=== PATIENT | male | born 1985 | race Caucasian/White ===

== ENCOUNTER 2023-02-15 12:21 | Outpatient (REF) | payer OTHER, SELFPAY ==
[2023-02-15 14:28] LABS: Alanine Aminotransferase 22 U/L (0-40); Albumin Level 4.5 g/dL (3.5-5.0); Alkaline Phosphatase 84 U/L (39-117); Anion Gap 10 (12-20); Aspartate Amino Transferase 26 U/L (5-37); Bilirubin Total 0.7 mg/dL (0.0-1.0); Blood Urea Nitrogen 15 mg/dL (9-16); Carbon Dioxide 29 mmol/L (22-29); Chloride 108 mmol/L (96-108); Cholesterol 153 mg/dL; Estimated Glomerular Filt Rate > 60; Glucose Random 83 mg/dL (60-115); HDL Cholesterol 44 mg/dL; LDL Cholesterol Calculated 99 mg/dl; Potassium 5.5 mmol/L (3.3-5.1); Sodium 141 mmol/L (135-145); Total Protein 7.4 g/dL (6.5-8.0); Triglycerides 50 mg/dL
[2023-02-15 14:41] LABS: TSH reflex Free T4 0.91 uIU/mL (0.32-4.0); Vitamin D 25-OH Total 21.6 ng/mL (>30)
== END 2023-02-15 12:22 | disposition home or self-care (01) ==
LOC: HO.LAB 12:21
PROVIDERS: PCP Nurse Practitioner Family; Visit Provider Nurse Practitioner Family
DX: Z13.21 Encounter for screening for nutritional disorder (principal); Z13.29 Encounter for screening for other suspected endocrine disorder; Z13.220 Encounter for screening for lipoid disorders
CPT/HCPCS: 36415; 80053; 80061; 82306; 84443

== ENCOUNTER 2023-02-19 07:17 | Outpatient (REF) | payer OTHER, SELFPAY ==
[2023-02-19 09:28] LABS: Potassium 4.6 mmol/L (3.3-5.1)
[2023-02-19 10:02] LABS: Vitamin D 25-OH Total 21.8 ng/mL (>30)
== END 2023-02-19 07:18 | disposition home or self-care (01) ==
LOC: HO.LAB 07:17
PROVIDERS: PCP Nurse Practitioner Family; Visit Provider Nurse Practitioner Family
DX: E87.5 Hyperkalemia (principal); E55.9 Vitamin D deficiency, unspecified
CPT/HCPCS: 36415; 82306; 84132

== ENCOUNTER 2023-09-12 07:15 | Outpatient (AMB) | payer OTHER, SELFPAY ==
--- NOTE | 2023-09-12 07:17 | A.OFFPC_ITS ---
Intake Visit Reasons: discuss medication change [phone] Allergies No Known Allergies Allergy (Verified 09/12/23 07:17) Tobacco use date assessed: 03/08/23 Dental Screening Dental Screen Date: 09/12/23 Did you have a dental visit in the last 12 months?: Yes Did you have a dental problem in the last 6 months where you did not have access to dental care?: No Was dental information given to patient?: Patient has dentist HPI HPI Comments History of Present Illness Details 37-year-old male medical history signifi cant for anxiety and depression. Patient presents today for physical exam.? Patient currently following with therapist and having weekly therapy sessions. Patient was started on fluoxetine in january and was doing well on this. Patient reports as a recently started feeling sluggish on the fluoxetine states that he was having a lot of weight gain given following his normal diet and exercise regimen. Patient reports he self tapered off of fluoxetine. Patient requesting to try Wellbutrin 1st depression as recommended by his therapist. RX sent for this. Patient advised to discuss therapist, psychiatrist recommendations. Patient verbalizes understanding and states he will speak with his therapist today regarding recommendations. [facility] Medical History (Updated 02/16/23 @ 08:55 by DEONDRE Pickens) Anxiety Depression Family History Father COPD (chronic obstructive pulmonary disease) Myocardial infarction Mother Substance use disorder Sister Breast CA Brother Depression Other Mental health disorder Social History Housing: Apartment Alcohol intake: current Alcohol intake frequency: holidays/special occasions only Patient Tobacco Use Status: Never used Tobacco Tobacco use type: Cigarette e-Cigarette/Vaping Use: Never Used service: No Current occupational status: employed Cognitive needs: No Hearing needs: No Vision needs: Yes (perscription glasses) Questionnaire PHQ-9 Over the last 2 weeks, how often have you been bothered by any of the following problems? 1. Little interest or pleasure in doing things: several days 2. Feeling down, depressed, or hopeless: several days 3. Trouble falling or staying asleep, or sleeping too much: not at all 4. Feeling tired or having little energy: not at all 5. Poor appetite or overeating: several days 6. Feeling bad about yourself - or that you are a failure or have let yourself or your family down: not at all 7. Trouble concentrating on things, such as reading the newspaper or watching television: not at all 8. Moving or speaking so slowly that other people could have noticed. Or the opposite - being so fidgety or restless that you have been moving around a lot more than usual: not at all 9. Thoughts that you would be better off or of hurting yourself in some way: not at all Total score: 3 Depression Screening Interpretation: Positive Depression Screening Done: Yes 46601 - PHQ-9 Billing: Yes Source: Developed by Drs. Troy Meneses, Ilene Bejarano, Hua Patton and colleagues, with an educational whitley from [employer]. Thrive Questionnaire Date Thrive assessed: 03/08/23 AUDIT C Alcohol Use Questionnaire (AUDIT-C) 1. How often do you have a drink containing alcohol?: Monthly or less Total Score: 1 LEODAN-7 AMB Questionnaire LEODAN-7 Date LEODAN - 7 assessed: 03/08/23 Source: Developed by Drs. Troy Meneses, Ilene Bejarano, Hua Patton and colleagues, with an educational whitley from [employer]. Review of Systems Const Reports weight gain and Reports other (sluggish ) Psych Denies homicidal ideation and Denies suicidal ideation Physical exam (Primary Care) Vital Signs: unable to complete, telehealth exam Tobacco/Smoking Status: Tobacco use Status Tobacco use date assessed 03/08/23 09/12/23 07:18 Patient Tobacco Use Status Never used Tobacco 09/12/23 07:18 Tobacco use type Cigarette 09/12/23 07:18 e-Cigarette/Vaping Use Never Used 09/12/23 07:18 PHQ-9: PHQ-9 Score PHQ-9: Total score 3 09/12/23 07:23 Depression Screening Interpretation: Positive Thrive Assessment: Date of Thrive Assessment Date Thrive assessed 03/08/23 09/12/23 07:18 Telehealth Telehealth Location of provider rendering services: practice address Location of patient: address on file Patient Identification confirmed using: Name, : Yes Telehealth method: voice only (Android) Patient verbally consented to treatment: Yes Patient verbally consented to billing insurance company: Yes Patient informed of any privacy concerns related to visit: Yes Assessment and Plan Assessment & Plan (1) Depression: Code(s): F32.A - Depression, unspecified Plan: Continue to follow with therapist. Will start Wellbutrin 150 mg daily. Patient advised to discuss recommendations for psychiatrist therapist. Patient agreeable to plan of care. (2) Anxiety: Code(s): F41.9 - Anxiety disorder, unspecified Plan: Cotninue to follow with therapist. Plan Follow up in 2 months. Medications: New bupropion HCl (Wellbutrin SR) 150 mg PO DAILY 30 tabs 3RF F32.A - Depression, unspecified, F41.9 - Anxiety disorder, unspecified Coding Level of Care Code Tele Est Pt Level 3 (65176) Diagnoses Depression F32.A Anxiety F41.9
== END 2023-09-12 09:08 | disposition home or self-care (01) ==
LOC: HO.HMGH 07:15
PROVIDERS: PCP Nurse Practitioner Family; Visit Provider Nurse Practitioner Family
DX: F32.A Depression, unspecified (principal); F41.9 Anxiety disorder, unspecified
CPT/HCPCS: 99213

== ENCOUNTER 2024-04-18 09:28 | Outpatient (AMB) | payer OTHER, SELFPAY ==
--- NOTE | 2024-04-18 09:41 | MHC.PC.OV ---
Vital Signs 04/18/24 09:44 Height 5 ft 10 in Weight 171 lb 6 oz BMI 24.6 BP 124/72 Blood Pressure Location Lt brachial Position Sitting Pulse 60 Pulse Source Pulse Oximeter Pulse Oximetry (%) 99 Oxygen Delivery Method Room Air Intake Visit Reasons: Annual Exam- former Michelle patient Intake Note: Patient is here today for a physical and LISS from [facility] Required: No Community Associate: Not Required per policy Accompanied by: Self / Same As Patient Allergies No Known Allergies Allergy (Verified 04/18/24 16:55) Medication List - Last Reconciled 04/18/24 by Herbert Bellamy MD bupropion HCl SR (Wellbutrin SR) 300 mg (2 x 150 mg) PO DAILY valacyclovir 500 mg PO DAILY Tobacco use date assessed: 04/18/24 Dental Screening Dental Screen Date: 04/18/24 Did you have a dental visit in the last 12 months?: Yes Did you have a dental problem in the last 6 months where you did not have access to dental care?: No Was dental information given to patient?: Patient has dentist HPI Annual Exam- former Michelle patient HPI Details 38-year-old male presents to the office requesting a physical. I am assuming his care as his primary care provider has left the practice. In addition to the above, patient is complaining of worsening anxiety, panic attacks and depression. He would like to increase the Wellbutrin dosage. Initially he was on citalopram which was changed to Wellbutrin after he began gaining weight. Patient reports that he has had eating disorder in the past. Patient also has had 3 outbreaks of herpes genitalis in the past few months. Was seen at [facility], requesting suppressive treatment. Patient has sexual activity with men, has not been active in the past few months. He tested negative for HIV in November. Is requesting pre exposure prophylaxis. [facility] Medical History (Updated 04/18/24 @ 17:05 by Herbert Bellamy MD) On pre-exposure prophylaxis for HIV Herpes Anxiety Depression Surgical History No pertinent past surgical history Family History Father COPD (chronic obstructive pulmonary disease) Myocardial infarction Mother Substance use disorder Sister Breast CA Brother Depression Other Mental health disorder Social History Housing: Apartment Alcohol intake: current Alcohol intake frequency: holidays/special occasions only Patient Tobacco Use Status: Never used Tobacco Tobacco use type: Cigarette e-Cigarette/Vaping Use: Never Used Second Hand Smoke Exposure: No service: No Current occupational status: employed Cognitive needs: No Hearing needs: No Vision needs: Yes (perscription glasses) Questionnaire PHQ-9 Over the last 2 weeks, how often have you been bothered by any of the following problems? 1. Little interest or pleasure in doing things: nearly every day 2. Feeling down, depressed, or hopeless: nearly every day (in treatment) 3. Trouble falling or staying asleep, or sleeping too much: more than half the days 4. Feeling tired or having little energy: nearly every day 5. Poor appetite or overeating: not at all 6. Feeling bad about yourself - or that you are a failure or have let yourself or your family down: nearly every day 7. Trouble concentrating on things, such as reading the newspaper or watching television: more than half the days 8. Moving or speaking so slowly that other people could have noticed. Or the opposite - being so fidgety or restless that you have been moving around a lot more than usual: not at all 9. Thoughts that you would be better off or of hurting yourself in some way: not at all Total score: 16 Depression Screening Interpretation: Positive Depression Screening Done: Yes Source: Developed by Drs. Troy Meneses, Ilene Bejarano, Hua Patton and colleagues, with an educational whitley from [employer]. Thrive Questionnaire Date Thrive assessed: 04/18/24 I am a: Patient What is your living situation today?: I have a steady place to live Within the past 12 months, did the food you bought not last and you didn't have the money to get more?: Never true Within the past 12 months, did you worry whether your food would run out before you got money to buy more?: Never true Do you have trouble paying for medicines?: No Do you have trouble getting transportation to medical appointments?: No Do you have trouble paying your heating and electricity bill?: No Do you have trouble taking care of your child, family member or friend?: No Do you have trouble with day-to-day activities such as bathing, preparing meals, shopping, managing finances, etc.?: No Are you currently unemployed and looking for a job?: No Are you interested in more education?: No Currently or been in a relationship where the following occur: No concerns reported THRIVE Score: 0 AUDIT C Alcohol Use Questionnaire (AUDIT-C) 1. How often do you have a drink containing alcohol?: Monthly or less 2. How many drinks containing alcohol do you have on a typical day when you are drinking?: 1 or 2 Total Score: 1 LEODAN-7 AMB Questionnaire LEODAN-7 Date LEODAN - 7 assessed: 04/18/24 Feeling nervous, anxious, or on edge: 3 = Nearly every day (in treatment) Not being able to stop or control worryin = More than half the days Worrying too much about different things: 2 = More than half the days Trouble relaxin = Nearly every day Being so restless that it is hard to sit still: 2 = More than half the days Becoming easily annoyed or irritable: 3 = Nearly every day Feeling afraid as if something awful might happen: 1 = Several days Total LEODAN-7 score (0-4 normal; 5-9 mild; 10-14 moderate; 15-21 severe): 16 Source: Developed by Drs. Troy Meneses, Ilene Bejarano, Hua Patton and colleagues, with an educational whitley from [employer]. Physical exam (Primary Care) Vital Signs: Last Vital Signs Pulse 60 04/18/24 09:44 BP 124/72 04/18/24 09:44 Pulse Ox 99 04/18/24 09:44 Oxygen Delivery Method Room Air 04/18/24 09:44 BMI result Body Mass Index 24.6 Tobacco/Smoking Status: Tobacco use Status Tobacco use date assessed 04/18/24 04/18/24 09:54 Patient Tobacco Use Status Never used Tobacco 04/18/24 09:54 Tobacco use type Cigarette 04/18/24 09:54 e-Cigarette/Vaping Use Never Used 04/18/24 09:54 PHQ-9: PHQ-9 Score PHQ-9: Total score 16 04/18/24 09:54 Depression Screening Interpretation: Positive Thrive Assessment: Date of Thrive Assessment Date Thrive assessed 04/18/24 04/18/24 09:54 Currently or been in a relationship where the following occur: No concerns reported Const General: cooperative and healthy appearing Nutritional Appearance: well nourished Orientation/consciousness: patient oriented x3 Limitations: no limitations HENMT Head: Yes normal to inspection Eyes General: appearance normal, both eyes and all related structures Neck Neck: Yes normal visual inspection Chest Chest palpation & inspection: normal palpation of entire chest wall Resp Effort & Inspection: normal respiratory effort Neuro General: patient oriented x3 Assessment and Plan Assessment & Plan (1) Anxiety: Code(s): F41.9 - Anxiety disorder, unspecified (2) Depression: Code(s): F32.A - Depression, unspecified Plan: Appointment with psychiatrist requested. Wellbutrin dosage has been increased to 300 mg once a day. (3) Herpes: Code(s): B00.9 - Herpesviral infection, unspecified Plan: Long-term suppressive therapy on valacyclovir. (4) On pre-exposure prophylaxis for HIV: Code(s): Z79.899 - Other buttermaker (current) drug therapy Plan: HIV testing has been requested. If the test is negative, we will start pre exposure prophylaxis. (5) Annual physical exam: Code(s): Z00.00 - Encounter for general adult medical examination without abnormal findings Plan: Blood work has been ordered. Will call with results. Orders: Orders Basic Metabolic Panel Today F32.A - Depression, unspecified, F41.9 - Anxiety disorder, unspecified, Z11.3 - Encounter for screening for infections with a predominantly sexual mode of transmission Liver Panel Today F32.A - Depression, unspecified, F41.9 - Anxiety disorder, unspecified, Z11.3 - Encounter for screening for infections with a predominantly sexual mode of transmission Thyroid Stimulating Hormone Today F32.A - Depression, unspecified, F41.9 - Anxiety disorder, unspecified, Z11.3 - Encounter for screening for infections with a predominantly sexual mode of transmission UA and rflx microscopic Today F32.A - Depression, unspecified, F41.9 - Anxiety disorder, unspecified, Z11.3 - Encounter for screening for infections with a predominantly sexual mode of transmission Lipid Panel Today F32.A - Depression, unspecified, F41.9 - Anxiety disorder, unspecified, Z11.3 - Encounter for screening for infections with a predominantly sexual mode of transmission HIV Ab/Ag Today F32.A - Depression, unspecified, F41.9 - Anxiety disorder, unspecified, Z11.3 - Encounter for screening for infections with a predominantly sexual mode of transmission Referrals Psychiatry Outpatient Consultation Service F32.A - Depression, unspecified, F41.9 - Anxiety disorder, unspecified Medications: New valacyclovir 500 mg PO DAILY 30 tabs 1RF Changed From bupropion HCl SR (Wellbutrin SR) 150 mg PO DAILY 30 tabs 3RF F32.A - Depression, unspecified, F41.9 - Anxiety disorder, unspecified To bupropion HCl SR (Wellbutrin SR) 300 mg (2 x 150 mg) PO DAILY 180 tabs 1RF F32.A - Depression, unspecified, F41.9 - Anxiety disorder, unspecified Coding Level of Care Code Est Pt Level 4 (38299) Est Pt Prev Care 18-39y(03621) Diagnoses Anxiety F41.9 Depression F32.A Herpes B00.9 On pre-exposure prophylaxis for HIV Z79.899 Annual physical exam Z00.00
[2024-04-18 09:44] VITALS: BP 124/72; PULSE 60; O2SAT 99; BMI 24.6
== END 2024-04-18 10:32 | disposition home or self-care (01) ==
PROVIDERS: PCP Internal Medicine; Visit Provider Internal Medicine
DX: Z00.00 Encounter for general adult medical examination without abnormal findings (principal); F41.9 Anxiety disorder, unspecified; F32.A Depression, unspecified; B00.9 Herpesviral infection, unspecified; Z79.899 Other long term (current) drug therapy
CPT/HCPCS: 99214; 99395

== ENCOUNTER 2024-04-28 08:35 | Outpatient (REF) | payer OTHER, SELFPAY ==
[2024-04-28 09:43] LABS: Appearance Urine Cloudy; Color Urine Yellow; Glucose Urine UA Negative (Negative); Leukocyte Esterase Urine Trace (Negative); Nitrite Urine Negative (Negative); PH 7.5 (5.0-9.0); UMIC TRIGGER UA YES; Urine Blood Negative (Negative); Urine Ketones Negative (Negative); Urine Protein Negative (Neg-Trace)
[2024-04-28 09:49] LABS: Bacteria Urine None Seen (None Seen); Hyaline Casts Urine 0-2 /LPF (0-2); RBC Urine 0-2 /HPF (0-2); Squamous Epithelial Cell Urine 0-2 /HPF (0-2); WBC Urine 0-5 /HPF (0-5)
[2024-04-28 10:13] LABS: Alanine Aminotransferase 14 U/L (0-40); Albumin Level 4.2 g/dL (3.5-5.0); Alkaline Phosphatase 67 U/L (39-117); Anion Gap 11 (12-20); Aspartate Amino Transferase 15 U/L (5-37); Bilirubin Direct 0.2 mg/dL (0.0-0.5); Bilirubin Total 0.6 mg/dL (0.0-1.0); Blood Urea Nitrogen 15 mg/dL (9-16); Calcium 9.6 mg/dL (8.4-10.2); Carbon Dioxide 26 mmol/L (22-29); Chloride 110 mmol/L (96-108); Cholesterol 130 mg/dL (<200); Estimated Glomerular Filt Rate > 60; Glucose Random 90 mg/dL (60-115); HDL Cholesterol 37 mg/dL (>40); LDL Cholesterol Calculated 85 mg/dL (<100); Potassium 4.7 mmol/L (3.3-5.1); Sodium 142 mmol/L (135-145); Total Protein 6.7 g/dL (6.5-8.0); Triglycerides 42 mg/dL (<150)
[2024-04-28 10:25] LABS: HIV AB/AG Nonreactive (Nonreactive); HIV Num 1 0.06 S/CO (0.00-0.99)
[2024-04-28 10:29] LABS: Thyroid Stimulating Hormone 0.45 uIU/mL (0.32-4.0)
== END 2024-04-28 08:36 | disposition home or self-care (01) ==
LOC: HO.LAB 08:35
PROVIDERS: PCP Internal Medicine; Visit Provider Internal Medicine
DX: F41.9 Anxiety disorder, unspecified (principal); F32.A Depression, unspecified; Z11.3 Encounter for screening for infections with a predominantly sexual mode of transmission
CPT/HCPCS: 36415; 80048; 80061; 80076; 81001; 84443; 87389

== ENCOUNTER 2024-05-07 08:54 | Outpatient (AMB) | payer OTHER, SELFPAY ==
--- NOTE | 2024-05-07 09:07 | A.OFFPSYCH_ITS ---
Intake Vital Signs 05/07/24 09:47 Height 5 ft 10 in Weight 168 lb Intake Visit Reasons: consultation [facility] [employer] Required: No Allergies No Known Allergies Allergy (Verified 04/18/24 16:55) Medication List - Last Reconciled 05/07/24 by Mindy Vogt APRN bupropion HCl SR (Wellbutrin SR) 300 mg (2 x 150 mg) PO DAILY emtricitabine-tenofovir (TDF) 200-300 mg (Truvada) 1 tab PO DAILY valacyclovir 500 mg PO DAILY HPI- Psychiatric Chief Complaint: consultation HPI Narrative: Referred by PCP for evaluation of depression and anxiety; Pt PHQ9 = 21 and LEODAN 7 = 18. pt reports significant depression fro years but worse over last 2-3 years. Pt feels sad every day; cries every day; bursts into tears even when working out at the gym. He is always anxious; He wakes in the middle of the night; he says his brain just gets going and won't stop. describes thoughts being of regrets, whys, critical thoughts about himself. He reports low energy, low motivation, lack of enjoyment; he reports a history of eating disorder in response to being bullied by peers and family members for being a big child. He began using laxatives and restricting food in his 20s. He still occasionalkly does resurt to that but more often he works out 1-2 times a day in order to feel okay about eating. He reports not enjoying eating but does eat protein and fruits and vegetable because he knows his body needs it. He reports feww friends, not cclose to family and a very difficult break up with s.o in December 2023. Pt denies SI or HI; no A/V Hallucination; no hx of edita Pt is currently taking wellbutrin 300mg daily and feels it has helped him not be as sad; no reported side effects. Pt has tried celexa and prozac both of which caused weight gain up to 40# He does not want to take anything that could cause weight gain as he feels it could trigger eating disorder. Past Psychiatric History: no IPLOC, No IOP or PHP. He has outpatient therpaist in [place] Otoniel Stewart Subjective Subjective Subjective Medication Compliance: Yes Side effects from medications: No Review of Systems Medical Review of Systems: unchanged Mental Status Exam Mental Status Exam Patient Appearance: Well Grooomed and Appropriate Patient Orientation: Person, Place, Time and Situation Level of Consciousness: Awake Patient Behavior: Appropriate Mood Description: Blunted, Sad and Nervous Affect Description: Depressed, Anxious, Flat and Sad Patient Cognition Impaired: No Ability to Follow Directions: Good Speech Pattern: Clear Memory Description: Intact Hallucinations: None Delusions: Not Present Thought Process: Intact and Goal Oriented Thought Content: positive for Intact and positive for Goal Oriented Judgement: Fair Assessment and Plan Assessment & Plan (1) Major depressive disorder, recurrent, moderate: Status: Acute Code(s): F33.1 - Major depressive disorder, recurrent, moderate (2) LEODAN (generalized anxiety disorder): Status: Acute Code(s): F41.1 - Generalized anxiety disorder Plan continue wellbutrin 300mg daily and discussed increase in future to 450mg if needed once anxiety reduced start lamictal 25mg daily x 14 days then 50mg daily x 14 days then 75mg daily x 10 days then 100mg daily return in one month continue therapy Medications: New lamotrigine (Lamictal) 25 mg orally take 1 tab daily x 14 days then take 2 tabs daily x 14 days then take 3 tabs daily x 10days 75 tabs 0RF 38 days Counseling and coordination of Care Pt. Self Management counseling: Maintenance-social rhythm, Mod caffeine/ETOH intake, Nutrition education and improvement, Sleep hygiene, Behavior activation and General coping skills Medication management counseling: Effectiveness, Side effects, Dosing range, Duration, Drug interaction and Adherence Details-Med Mgmt counseling: if develop rash stop lamictal and call office right away Diagnosis and Prognosis Counseling: Accuracy of diagnosis, Prognosis over time, Impact of diagnosis on life functions and Adequacy of current interventions Details: I spent 60 minutes reviewing the record, seeing the patient and documenting in the medical record. Counseling provided to the patient/caregiver as outlined below. Addressed pa tient/caregiver concerns regarding current medication regime including effective adherence. Addressed patient/caregiver concerns regarding diagnosis and prognosis including accuracy of diagnosis, prognosis over time, impact of diagnosis. Addressed patient/caregiver concerns regarding impact of recent stressors. [facility] Medical History (Updated 05/07/24 @ 10:29 by Mindy Vogt APRN) On pre-exposure prophylaxis for HIV Herpes Anxiety Depression Surgical History No pertinent past surgical history Family History Father COPD (chronic obstructive pulmonary disease) Myocardial infarction Mother Substance use disorder Sister Breast CA Brother Depression Other Mental health disorder Social History Housing: Apartment Alcohol intake: current Alcohol intake frequency: holidays/special occasions only Patient Tobacco Use Status: Never used Tobacco Tobacco use type: Cigarette e-Cigarette/Vaping Use: Never Used Second Hand Smoke Exposure: No service: No Current occupational status: employed Cognitive needs: No Hearing needs: No Vision needs: Yes (perscription glasses) Social History: lives alone; has dog and 2 cats; works in [employer] Reviewed Substance History: none Trauma History: bullied Coding Level of Care Code Psych Diag Eval w/Med (88898) Diagnoses Major depressive disorder, recurrent, moderate F33.1 LEODAN (generalized anxiety disorder) F41.1
== END 2024-05-07 10:07 | disposition home or self-care (01) ==
PROVIDERS: PCP Internal Medicine; Visit Provider Clinical Nurse Specialist Psychiatric/Mental Health
DX: F33.1 Major depressive disorder, recurrent, moderate (principal); F41.1 Generalized anxiety disorder
CPT/HCPCS: 90792

== ENCOUNTER → 2024-05-07 08:54 | Outpatient (BNVA) | payer OTHER, SELFPAY | PROVIDERS: PCP Internal Medicine; Visit Provider Clinical Nurse Specialist Psychiatric/Mental Health | DX: F33.1 Major depressive disorder, recurrent, moderate (principal); F41.1 Generalized anxiety disorder | CPT/HCPCS: 90792 ==

== ENCOUNTER 2024-06-05 09:24 | Outpatient (AMB) | payer OTHER, SELFPAY ==
--- NOTE | 2024-06-05 09:29 | MHC.OFFVISPS ---
Intake Intake Visit Reasons: consultation [employer] Required: No Allergies No Known Allergies Allergy (Verified 04/18/24 16:55) Medication List - Last Reconciled 06/05/24 by Mindy Vogt APRN bupropion HCl SR (Wellbutrin SR) 300 mg (2 x 150 mg) PO DAILY emtricitabine-tenofovir (TDF) 200-300 mg (Truvada) 1 tab PO DAILY lamotrigine (Lamictal) 25 mg orally take 1 tab daily x 14 days then take 2 tabs daily x 14 days then take 3 tabs daily x 10days 38 days valacyclovir 500 mg PO DAILY HPI- Psychiatric Chief Complaint: consultation HPI Narrative: Pt is currently taking wellbutrin 300mg daily and and lamictal 75mg daily; He denies rash; no reported side effects. Pt reports slightly improved mood but still struggling with depression and anxiety. His PHQ9 = 16 and GAD7 = 12. Pt has had some stress and overstimulation with traveling and spending time with family; he is not bursting into tears everyday. He did have a long cry Tuesday but it felt cathartic. No SI No HI. He continues to have negative thoughts about self often. still not sleeping well; wakes several times a night- tried melatonin and no help Past Psychiatric History: Referred by PCP for evaluation of depression and anxiety; At intake, Pt PHQ9 = 21 and LEODAN 7 = 18. pt reported significant depression for years but worse over last 2-3 years. Pt feels sad every day; cries every day; bursts into tears even when working out at the gym. He is always anxious; He wakes in the middle of the night; he says his brain just gets going and won't stop. describes thoughts being of regrets, whys, critical thoughts about himself. He reports low energy, low motivation, lack of enjoyment; he reports a history of eating disorder in response to being bullied by peers and family members for being a big child. He began using laxatives and restricting food in his 20s. He still occasionally does resorts to that but more often he works out 1-2 times a day in order to feel okay about eating. He reports not enjoying eating but does eat protein and fruits and vegetable because he knows his body needs it. He reports few friends, not close to family and a very difficult break up with S.O in December 2023. Pt denies SI or HI; no A/V Hallucination; no hx of edita Pt has tried celexa and prozac both of which caused weight gain up to 40# He does not want to take anything that could cause weight gain as he feels it could trigger eating disorder. Past Psychiatric History: no IPLOC, No IOP or PHP. He has [facility] [place] [facility] Subjective Subjective Subjective Medication Compliance: Yes Side effects from medications: No Review of Systems Medical Review of Systems: unchanged Mental Status Exam Mental Status Exam Patient Appearance: Appropriate Patient Orientation: Person, Place, Time and Situation Level of Consciousness: Awake and Alert Patient Behavior: Appropriate and Cooperative Mood Description: Anxious Affect Description: Anxious Patient Cognition Impaired: No Ability to Follow Directions: Good Speech Pattern: Clear Hallucinations: None Thought Process: Intact Thought Content: positive for Intact Judgement: Fair Assessment and Plan Assessment & Plan (1) LEODAN (generalized anxiety disorder): Status: Acute Code(s): F41.1 - Generalized anxiety disorder (2) Major depressive disorder, recurrent, moderate: Status: Acute Code(s): F33.1 - Major depressive disorder, recurrent, moderate Plan increase lamictal to 100mg qam increase wellbutrin to [id number] and [id number] mg daily start hydroxyzine 25 mg at bedtime and may repeat times 1 if still awake in one hour Medications: New bupropion HCl XL (Wellbutrin XL) 150 mg PO QAM 30 tabs 0RF lamotrigine (Lamictal) 100 mg PO DAILY 30 tabs 0RF bupropion HCl XL (Wellbutrin XL) 300 mg PO QAM 30 tabs 0RF hydroxyzine HCl 25 mg orally Take one at bedtime and may repeat in one hour if still awake; 60 tabs 0RF Discontinued bupropion HCl SR (Wellbutrin SR) Discontinued Reason: Doctor's Order 300 mg (2 x 150 mg) PO DAILY 180 tabs 1RF F32.A - Depression, unspecified, F41.9 - Anxiety disorder, unspecified lamotrigine (Lamictal) Discontinued Reason: Doctor's Order 25 mg orally take 1 tab daily x 14 days then take 2 tabs daily x 14 days then take 3 tabs daily x 10days 38 days 75 tabs 0RF Counseling and coordination of Care Pt. Self Management counseling: Sleep hygiene, Behavior activation, General coping skills, Parenting skills and Problem solving Medication management counseling: Effectiveness, Side effects, Dosing range, Duration, Drug interaction and Adherence Diagnosis and Prognosis Counseling: Accuracy of diagnosis, Prognosis over time, Impact of diagnosis on life functions, Impact of family relationship, Problematic behaviors secondary to diagnosis and Adequacy of current interventions Details: I spent 30 minutes reviewing the record, seeing the patient and documenting in the medical record. Counseling provided to the patient/caregiver as outlined below. Addressed patient/caregiver concerns regarding current medication regime including effective adherence. Addressed patient/caregiver concerns regarding diagnosis and prognosis including accuracy of diagnosis, prognosis over time, impact of diagnosis. Addressed patient/caregiver concerns regarding impact of recent stressors. [facility] Medical History (Updated 05/07/24 @ 10:29 by Mindy Vogt APRN) On pre-exposure prophylaxis for HIV Herpes Anxiety Depression Surgical History No pertinent past surgical history Family History Father COPD (chronic obstructive pulmonary disease) Myocardial infarction Mother Substance use disorder Sister Breast CA Brother Depression Other Mental health disorder Social History Housing: Apartment Alcohol intake: current Alcohol intake frequency: holidays/special occasions only Patient Tobacco Use Status: Never used Tobacco Tobacco use type: Cigarette e-Cigarette/Vaping Use: Never Used Second Hand Smoke Exposure: No service: No Current occupational status: employed Cognitive needs: No Hearing needs: No Vision needs: Yes (perscription glasses) Social History: lives alone; has dog and 2 cats; works in [employer] Substance History: none Trauma History: bullied Coding Level of Care Code Est Pt Level 4 (77504) Diagnoses LEODAN (generalized anxiety disorder) F41.1 Major depressive disorder, recurrent, moderate F33.1
== END 2024-06-05 09:57 | disposition home or self-care (01) ==
LOC: HO.HOP 09:24
PROVIDERS: PCP Internal Medicine; Visit Provider Clinical Nurse Specialist Psychiatric/Mental Health
DX: F41.1 Generalized anxiety disorder (principal); F33.1 Major depressive disorder, recurrent, moderate
CPT/HCPCS: 99214

== ENCOUNTER → 2024-06-05 09:24 | Outpatient (BNVA) | payer OTHER, SELFPAY | PROVIDERS: PCP Internal Medicine; Visit Provider Clinical Nurse Specialist Psychiatric/Mental Health | DX: F41.1 Generalized anxiety disorder (principal); F33.1 Major depressive disorder, recurrent, moderate; Z71.89 Other specified counseling | CPT/HCPCS: 99212 ==

== ENCOUNTER 2024-06-25 09:39 | Outpatient (AMB) | payer OTHER, SELFPAY ==
--- NOTE | 2024-06-25 09:44 | A.OFFPSYCH_ITS ---
Intake Intake Visit Reasons: consultation [employer] Required: No Allergies No Known Allergies Allergy (Verified 04/18/24 16:55) Medication List - Last Reconciled 06/25/24 by Mindy Vogt APRN bupropion HCl XL (Wellbutrin XL) 150 mg PO QAM bupropion HCl XL (Wellbutrin XL) 300 mg PO QAM emtricitabine-tenofovir (TDF) 200-300 mg (Truvada) 1 tab PO DAILY lamotrigine (Lamictal) 150 mg (1.5 x 100 mg) PO DAILY mirtazapine 7.5 mg PO BEDTIME valacyclovir 500 mg PO DAILY HPI- Psychiatric Chief Complaint: consultation HPI Narrative: pt symptoms worsened; PHQ9=23 and GAD7 = 19. he reports feeling much more depressed; isolative, sad, and anxious; trigger is seeing his ex with a new partner. He has not slept well even with the hydroxyzine. he denies SI or Hi. discussed possibility of PHP. He is seeing his therapist weekly. he does not think increase in wellbutrin has worsened his mood or anxiety. Past Psychiatric History: Referred by PCP for evaluation of depression and anxiety; At intake, Pt PHQ9 = 21 and LEODAN 7 = 18. pt reported significant depression for years but worse over last 2-3 years. Pt feels sad every day; crie s every day; bursts into tears even when working out at the gym. He is always anxious; He wakes in the middle of the night; he says his brain just gets going and won't stop. describes thoughts being of regrets, whys, critical thoughts about himself. He reports low energy, low motivation, lack of enjoyment; he reports a history of eating disorder in response to being bullied by peers and family members for being a big child. He began using laxatives and restricting food in his 20s. He still occasionally does resorts to that but more often he works out 1-2 times a day in order to feel okay about eating. He reports not enjoying eating but does eat protein and fruits and vegetable because he knows his body needs it. He reports few friends, not close to family and a very difficult break up with S.O in December 2023. Pt denies SI or HI; no A/V Hallucination; no hx of edita Pt has tried celexa and prozac both of which caused weight gain up to 40# He does not want to take anything that could cause weight gain as he feels it could trigger eating disorder. Past Psychiatric History: no IPLOC, No IOP or PHP. He has [facility] [place] [facility] Subjective Subjective Subjective Medication Compliance: Yes Side effects from medications: No Review of Systems Medical Review of Systems: unchanged Mental Status Exam Mental Status Exam Patient Appearance: Well Grooomed and Appropriate Patient Orientation: Person, Place, Time and Situation Level of Consciousness: Awake and Alert Patient Behavior: Appropriate Mood Description: Flat and Sad Affect Description: Flat and Sad Patient Cognition Impaired: No Ability to Follow Directions: Good Speech Pattern: Clear and Coherent Memory Description: Intact Hallucinations: None Delusions: Not Present Thought Process: Intact and Goal Oriented Thought Content: positive for Intact and positive for Goal Oriented Judgement: Good Assessment and Plan Assessment & Plan (1) LEODAN (generalized anxiety disorder): Status: Acute Code(s): F41.1 - Generalized anxiety disorder (2) Major depressive disorder, recurrent, moderate: Status: Acute Code(s): F33.1 - Major depressive disorder, recurrent, moderate Plan Increase lamictal to 150mg daily add remron 7.5mg at bedtime stop hydroxyzine continue wellbutrin 450mg qam Medications: New mirtazapine 7.5 mg PO BEDTIME 30 tabs 1RF Changed From lamotrigine (Lamictal) 100 mg PO DAILY 30 tabs 0RF To lamotrigine (Lamictal) 150 mg (1.5 x 100 mg) PO DAILY 45 tabs 1RF Refilled bupropion HCl XL (Wellbutrin XL) 150 mg PO QAM 30 tabs 0RF bupropion HCl XL (Wellbutrin XL) 300 mg PO QAM 30 tabs 0RF Discontinued hydroxyzine HCl Discontinued Reason: Doctor's Order 25 mg orally Take one at bedtime and may repeat in one hour if still awake; 60 tabs 0RF Counseling and coordination of Care Pt. Self Management counseling: Maintenance-social rhythm, Mod caffeine/ETOH intake, Sleep hygiene, Behavior activation, General coping skills and Problem solving Medication management counseling: Effectiveness, Side effects, Dosing range, Duration, Drug interaction and Adherence Diagnosis and Prognosis Counseling: Accuracy of diagnosis, Prognosis over time, Impact of diagnosis on life functions, Impact of family relationship and Adequacy of current interventions Details: I spent 40 minutes reviewing the record, seeing the patient and documenting in the medical record. Counseling provided to the patient/caregiver as outlined below. Addressed shanita ent/caregiver concerns regarding current medication regime including effective adherence. Addressed patient/caregiver concerns regarding diagnosis and prognosis including accuracy of diagnosis, prognosis over time, impact of diagnosis. Addressed patient/caregiver concerns regarding impact of recent stressors. [facility] Medical History (Updated 05/07/24 @ 10:29 by Mindy Vogt APRN) On pre-exposure prophylaxis for HIV Herpes Anxiety Depression Surgical History No pertinent past surgical history Family History Father COPD (chronic obstructive pulmonary disease) Myocardial infarction Mother Substance use disorder Sister Breast CA Brother Depression Other Mental health disorder Social History Housing: Apartment Alcohol intake: current Alcohol intake frequency: holidays/special occasions only Patient Tobacco Use Status: Never used Tobacco Tobacco use type: Cigarette e-Cigarette/Vaping Use: Never Used Second Hand Smoke Exposure: No service: No Current occupational status: employed Cognitive needs: No Hearing needs: No Vision needs: Yes (perscription glasses) Social History: lives alone; has dog and 2 cats; works in [employer] Substance History: none Trauma History: bullied Coding Level of Care Code Est Pt Level 4 (87399) Diagnoses LEODAN (generalized anxiety disorder) F41.1 Major depressive disorder, recurrent, moderate F33.1
== END 2024-06-25 09:58 | disposition home or self-care (01) ==
LOC: HO.HOP 09:39
PROVIDERS: PCP Internal Medicine; Visit Provider Clinical Nurse Specialist Psychiatric/Mental Health
DX: F41.1 Generalized anxiety disorder (principal); F33.1 Major depressive disorder, recurrent, moderate
CPT/HCPCS: 99214

== ENCOUNTER → 2024-06-25 09:39 | Outpatient (BNVA) | payer OTHER, SELFPAY | PROVIDERS: PCP Internal Medicine; Visit Provider Clinical Nurse Specialist Psychiatric/Mental Health | DX: F33.1 Major depressive disorder, recurrent, moderate (principal); F41.1 Generalized anxiety disorder | CPT/HCPCS: 99212 ==

== ENCOUNTER 2024-07-17 09:01 | Outpatient (AMB) | payer OTHER, SELFPAY ==
--- NOTE | 2024-07-17 09:15 | MHC.OFFVISPS ---
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 He started taking lamictal 200mg in am daily 2 days ago because it got too difficult to cut pills in half; no side effects; hefeels it may be helping with feeling calmer; slight improvement in PHQ9= 21 (was 23 last visit) and GAD7 15 (was 19 last visit) No SI nO Hi. many stressors per pt with finances, rent increase, work is slow. Past Psychiatric History: Referred by PCP for evaluation of depression and anxiety; At intake, Pt PHQ9 = 21 and LEODAN 7 = 18. pt reported significant depression for years but worse over last 2-3 years. Pt feels sad every day; cries every day; bursts into tears even when working out at the gym. He is always anxious; He wakes in the middle of the night; he says his brain just gets going and won't stop. describes thoughts being of regrets, whys, critical thoughts about himself. He reports low energy, low motivation, lack of enjoyment; he reports a history of eating disorder in response to being bullied by peers and family members for being a big child. He began using laxatives and restricting food in his 20s. He still occasionally does resorts to that but more often he works out 1-2 times a day in order to feel okay about eating. He reports not enjoying eating but does eat protein and fruits and vegetable because he knows his body needs it. He reports few friends, not close to family and a very difficult break up with S.O in December 2023. Pt denies SI or HI; no A/V Hallucination; no hx of edita Pt has tried celexa and prozac both of which caused weight gain up to 40# He does not want to take anything that could cause weight gain as he feels it could trigger eating disorder. Past Psychiatric History: no IPLOC, No IOP or PHP. He has outpatient therpaist in [facility] Subjective Subjective Subjective Medication Compliance: Yes Side effects from medications: No Review of Systems Medical Review of Systems: unchanged Mental Status Exam Mental Status Exam Patient Appearance: Appropriate Patient Orientation: Person, Place, Time and Situation Level of Consciousness: Awake Patient Behavior: Appropriate and Cooperative Mood Description: Sad Affect Description: Flat and Sad Patient Cognition Impaired: No Ability to Follow Directions: Good Speech Pattern: Clear Memory Description: Intact Hallucinations: None Delusions: Not Present Thought Process: Intact and Slowed Thinking Thought Content: positive for Intact Judgement: Fair Assessment and Plan Assessment & Plan (1) LEODAN (generalized anxiety disorder): Status: Acute Code(s): F41.1 - Generalized anxiety disorder (2) Major depressive disorder, recurrent, moderate: Status: Acute Code(s): F33.1 - Major depressive disorder, recurrent, moderate Plan continue lamictal 200mg qAM increase remeron to 15 mg at bedtime start vitamin B50 complex daily continue wellbutrin 450mg qam Medications: New mirtazapine (Remeron) 15 mg PO BEDTIME 30 tabs 2RF Changed From lamotrigine (Lamictal) 150 mg (1.5 x 100 mg) PO DAILY 45 tabs 1RF To lamotrigine (Lamictal) 200 mg (2 x 100 mg) PO DAILY 60 tabs 2RF Discontinued mirtazapine Discontinued Reason: Doctor's Order 7.5 mg PO BEDTIME 30 tabs 1RF Counseling and coordination of Care Pt. Self Management counseling: Maintenance-social rhythm, Mod caffeine/ETOH intake, Sleep hygiene, Behavior activation and General coping skills Medication management counseling: Effectiveness, Side effects, Dosing range, Duration, Drug interaction and Adherence Diagnosis and Prognosis Counseling: Accuracy of diagnosis, Prognosis over time, Impact of diagnosis on life functions, Impact of family relationship, Problematic behaviors secondary to diagnosis and Adequacy of current interventions Details: I spent 30 minutes reviewing the record, seeing the patient and documenting in the medical record. Counseling provided to the patient/caregiver as outlined below. Addressed patient/caregiver concerns regarding current medication regime including effective adherence. Addressed patient/caregiver concerns regarding diagnosis and prognosis including accuracy of diagnosis, prognosis over time, impact of diagnosis. Addressed patient/caregiver concerns regarding impact of recent stressors. [facility] Medical History (Updated 05/07/24 @ 10:29 by Mindy Vogt APRN) On pre-exposure prophylaxis for HIV Herpes Anxiety Depression Surgical History No pertinent past surgical history Family History Father COPD (chronic obstructive pulmonary disease) Myocardial infarction Mother Substance use disorder Sister Breast CA Brother Depression Other Mental health disorder Social History Housing: Apartment Alcohol intake: current Alcohol intake frequency: holidays/special occasions only Patient Tobacco Use Status: Never used Tobacco Tobacco use type: Cigarette e-Cigarette/Vaping Use: Never Used Second Hand Smoke Exposure: No service: No Current occupational status: employed Cognitive needs: No Hearing needs: No Vision needs: Yes (perscription glasses) Social History: lives alone; has dog and 2 cats; works in [employer] Substance History: none Trauma History: bullied Coding Level of Care Code Est Pt Level 4 (92978) Diagnoses LEODAN (generalized anxiety disorder) F41.1 Major depressive disorder, recurrent, moderate F33.1
== END 2024-07-17 09:36 | disposition home or self-care (01) ==
LOC: HO.HOP 09:01
PROVIDERS: PCP Internal Medicine; Visit Provider Clinical Nurse Specialist Psychiatric/Mental Health
DX: F41.1 Generalized anxiety disorder (principal); F33.1 Major depressive disorder, recurrent, moderate
CPT/HCPCS: 99214

== ENCOUNTER → 2024-07-17 09:01 | Outpatient (BNVA) | payer OTHER, SELFPAY | PROVIDERS: PCP Internal Medicine; Visit Provider Clinical Nurse Specialist Psychiatric/Mental Health | DX: F41.1 Generalized anxiety disorder (principal); F33.1 Major depressive disorder, recurrent, moderate | CPT/HCPCS: 99212 ==

== ENCOUNTER 2024-07-30 09:09 | Outpatient (AMB) | payer OTHER, SELFPAY ==
--- NOTE | 2024-07-30 09:12 | A.OFFPSYCH_ITS ---
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 pt worries every day. the anxiety has not increased since the wellbutrin but has not helped he anxiety either; depression slightly improved. No SI or HI. Past Psychiatric History: Referred by PCP for evaluation of depression and anxiety; At intake, Pt PHQ9 = 21 and LEODAN 7 = 18. pt reported significant depression for years but worse over last 2-3 years. Pt feels sad every day; cries every day; bursts into tears even when working out at the gym. He is always anxious; He wakes in the middle of the night; he says his brain just gets going and won't stop. describes thoughts being of regrets, whys, critical thoughts about himself. He reports low energy, low motivation, lack of enjoyment; he reports a history of eating disorder in response to being bullied by peers and family members for being a big child. He began using laxatives and restricting food in his 20s. He still occasionally does resorts to that but more often he works out 1-2 times a day in order to feel okay about eating. He reports not enjoying eating but does eat protein and fruits and vegetable because he knows his body needs it. He reports few friends, not close to family and a very difficult break up with S.O in December 2023. Pt denies SI or HI; no A/V Hallucination; no hx of edita Pt has tried celexa and prozac both of which caused weight gain up to 40# He does not want to take anything that could cause weight gain as he feels it could trigger eating disorder. Past Psychiatric History: no IPLOC, No IOP or PHP. He has outpatient therpaist in [place] [facility] Subjective Subjective Subjective Medication Compliance: Yes Side effects from medications: No Review of Systems Medical Review of Systems: unchanged Mental Status Exam Mental Status Exam Patient Appearance: Appropriate Patient Orientation: Person, Place, Time and Situation Level of Consciousness: Awake Patient Behavior: Appropriate Mood Description: Anxious and Sad Affect Description: Sad Patient Cognition Impaired: No Ability to Follow Directions: Good Speech Pattern: Clear and Soft-Spoken Memory Description: Intact Hallucinations: None Delusions: Not Present Thought Process: Intact Thought Content: positive for Intact Judgement: Good Assessment and Plan Assessment & Plan (1) LEODAN (generalized anxiety disorder): Status: Acute Code(s): F41.1 - Generalized anxiety disorder (2) Major depressive disorder, recurrent, moderate: Status: Acute Code(s): F33.1 - Major depressive disorder, recurrent, moderate Plan add lamictal 50mg at 3 pm daily for reduced anxiety discussed SSRI but pt fearful of weight gain with ssri Medications: New lamotrigine (Lamictal) 50 mg (2 x 25 mg) PO DAILY@1500 180 tabs 0RF 90 days Refilled bupropion HCl XL (Wellbutrin XL) 150 mg PO QAM 30 tabs 2RF bupropion HCl XL (Wellbutrin XL) 300 mg PO QAM 30 tabs 2RF lamotrigine (Lamictal) 200 mg (2 x 100 mg) PO DAILY 180 tabs 1RF Counseling and coordination of Care Pt. Self Management counseling: Maintenance-social rhythm, Sleep hygiene, Behavior activation, Cognitive restructuring, General coping skills and Problem solving Medication management counseling: Effectiveness, Side effects, Dosing range, Duration, Drug interaction and Adherence Diagnosis and Prognosis Counseling: Accuracy of diagnosis, Prognosis over time, Impact of diagnosis on life functions, Impact of family relationship, Problematic behaviors secondary to diagnosis and Adequacy of current interventions Details: I spent 40 minutes reviewing the record, seeing the patient and documenting in the medical record. Counseling provided to the patient/caregiver as outlined below. Addressed patient/caregiver concerns regarding current medication regime including effective adherence. Addressed patient/caregiver concerns regarding diagnosis and prognosis including accuracy of diagnosis, prognosis over time, impact of diagnosis. Addressed patient/caregiver concerns regarding impact of recent stressors. [facility] Medical History (Updated 05/07/24 @ 10:29 by Mindy Vogt APRN) On pre-exposure prophylaxis for HIV Herpes Anxiety Depression Surgical History No pertinent past surgical history Family History Father COPD (chronic obstructive pulmonary disease) Myocardial infarction Mother Substance use disorder Sister Breast CA Brother Depression Other Mental health disorder Social History Housing: Apartment Alcohol intake: current Alcohol intake frequency: holidays/special occasions only Patient Tobacco Use Status: Never used Tobacco Tobacco use type: Cigarette e-Cigarette/Vaping Use: Never Used Second Hand Smoke Exposure: No service: No Current occupational status: employed Cognitive needs: No Hearing needs: No Vision needs: Yes (perscription glasses) Social History: lives alone; has dog and 2 cats; works in [employer] Substance History: none Trauma History: bullied Coding Level of Care Code Est Pt Level 4 (30764) Diagnoses LEODAN (generalized anxiety disorder) F41.1 Major depressive disorder, recurrent, moderate F33.1
== END 2024-07-30 11:12 | disposition home or self-care (01) ==
LOC: HO.HOP 09:09
PROVIDERS: PCP Internal Medicine; Visit Provider Clinical Nurse Specialist Psychiatric/Mental Health
DX: F41.1 Generalized anxiety disorder (principal); F33.1 Major depressive disorder, recurrent, moderate
CPT/HCPCS: 99214

== ENCOUNTER → 2024-07-30 09:09 | Outpatient (BNVA) | payer OTHER, SELFPAY | PROVIDERS: PCP Internal Medicine; Visit Provider Clinical Nurse Specialist Psychiatric/Mental Health | DX: F41.1 Generalized anxiety disorder (principal); F33.1 Major depressive disorder, recurrent, moderate | CPT/HCPCS: 99212 ==

== ENCOUNTER 2024-08-27 09:30 | Outpatient (AMB) | payer OTHER, SELFPAY ==
--- NOTE | 2024-08-27 09:33 | A.OFFPSYCH_ITS ---
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 Allergies No Known Allergies Allergy (Verified 04/18/24 16:55) Medication List - Last Reconciled 08/27/24 by Mindy Vogt APRN bupropion HCl XL (Wellbutrin XL) 150 mg PO QAM bupropion HCl XL (Wellbutrin XL) 300 mg PO QAM emtricitabine-tenofovir (TDF) 200-300 mg (Truvada) 1 tab PO DAILY lamotrigine (Lamictal) 50 mg (2 x 25 mg) PO DAILY@1500 90 days lamotrigine (Lamictal) 200 mg (2 x 100 mg) PO DAILY mirtazapine (Remeron) 15 mg PO BEDTIME valacyclovir 500 mg PO DAILY HPI- Psychiatric Chief Complaint: f/u consultation HPI Narrative: pt reports improved anxiety and depression; feels that although he has symptoms he can manage better; when he is busy he feels pretty well; when he is not distracted that is when he has more trouble with intrusive negative thinking; pt stopped the remeron due to feeling it constipated him. he is also strugging with eating disorder symptoms- eating and then feeling bad about it; not wanting to gain weight and using laxative daily. we discussed [place] [facility] but at this time they only offer inpatient treatment. discussed finding a therapist that specializes in Eating disorders; Pt will try to substitute magnesium glycinate and buffered Vitamin C for the laxative. He will also explore an EMDR therapist to work on eating issues. Past Psychiatric History: Referred by PCP for evaluation of depression and anxiety; At intake, Pt PHQ9 = 21 and LEODAN 7 = 18. pt reported significant depression for years but worse over last 2-3 years. Pt feels sad every day; cries every day; bursts into tears even when working out at the gym. He is always anxious; He wakes in the middle of the night; he says his brain just gets going and won't stop. describes thoughts being of regrets, whys, critical thoughts about himself. He reports low energy, low motivation, lack of enjoyment; he reports a history of eating disorder in response to being bullied by peers and family members for being a big child. He began using laxatives and restricting food in his 20s. He still occasionally does resorts to that but more often he works out 1-2 times a day in order to feel okay about eating. He reports not enjoying eating but does eat protein and fruits and vegetable because he knows his body needs it. He reports few friends, not close to family and a very difficult break up with S.O in December 2023. Pt denies SI or HI; no A/V Hallucination; no hx of edita Pt has tried celexa and prozac both of which caused weight gain up to 40# He does not want to take anything that could cause weight gain as he feels it could trigger eating disorder. Past Psychiatric History: no IPLOC, No IOP or PHP. He has outpatient therpaist in [facility] Subjective Subjective Subjective Medication Compliance: Yes Side effects from medications: No Review of Systems Medical Review of Systems: unchanged Mental Status Exam Mental Status Exam Patient Appearance: Well Grooomed and Appropriate Patient Orientation: Person, Place, Time and Situation Level of Consciousness: Awake and Appropriate Patient Behavior: Appropriate Mood Description: Constricted Affect Description: Constricted and Flat Patient Cognition Impaired: No Ability to Follow Directions: Good Speech Pattern: Clear Memory Description: Intact Hallucinations: None Delusions: Not Present Thought Process: Intact Thought Content: positive for Intact Judgement: Good Assessment and Plan Assessment & Plan (1) LEODAN (generalized anxiety disorder): Status: Acute Code(s): F41.1 - Generalized anxiety disorder (2) Major depressive disorder, recurrent, moderate: Status: Acute Code(s): F33.1 - Major depressive disorder, recurrent, moderate (3) Anorexia mentalis: Status: Acute Code(s): F50.00 - Anorexia nervosa, unspecified Plan continue medications: lamictal and wellbutrin stop mirtazepine asdd magnesium glycinate 200mg at bedtime and buffered vit c 1000 mg daily seek out consumer education specialist and or an EMDR therapist Medications: Refilled bupropion HCl XL (Wellbutrin XL) 150 mg PO QAM 90 tabs 1RF lamotrigine (Lamictal) 50 mg (2 x 25 mg) PO DAILY@1500 180 tabs 1RF 90 days lamotrigine (Lamictal) 200 mg (2 x 100 mg) PO DAILY 180 tabs 1RF bupropion HCl XL (Wellbutrin XL) 300 mg PO QAM 90 tabs 1RF Discontinued mirtazapine (Remeron) Discontinued Reason: Doctor's Order 15 mg PO BEDTIME 30 tabs 2RF Counseling and coordination of Care Pt. Self Management counseling: Maintenance-social rhythm, Mindfulness, Mod caffeine/ETOH intake, Nutrition education and improvement, Sleep hygiene, Behavior activation, General coping skills and Problem solving Medication management counseling: Effectiveness, Side effects, Dosing range, Duration, Drug interaction and Adherence Diagnosis and Prognosis Counseling: Accuracy of diagnosis, Prognosis over time, Impact of diagnosis on life functions, Impact of family relationship, Problematic behaviors secondary to diagnosis and Adequacy of current interventions Details: I spent 45 minutes reviewing the record, seeing the patient and documenting in the medical record. Counseling provided to the patient/caregiver as outlined below. Addressed patient/caregiver concerns regarding current medication regime including effective adherence. Addressed patient/caregiver concerns regarding diagnosis and prognosis including accuracy of diagnosis, prognosis over time, impact of diagnosis. Addressed patient/caregiver concerns regarding impact of recent stressors. [facility] Medical History (Updated 08/27/24 @ 13:00 by Mindy Vogt APRN) On pre-exposure prophylaxis for HIV Herpes Anxiety Depression Surgical History No pertinent past surgical history Family History Father COPD (chronic obstructive pulmonary disease) Myocardial infarction Mother Substance use disorder Sister Breast CA Brother Depression Other Mental health disorder Social History Housing: Apartment Alcohol intake: current Alcohol intake frequency: holidays/special occasions only Patient Tobacco Use Status: Never used Tobacco Tobacco use type: Cigarette e-Cigarette/Vaping Use: Never Used Second Hand Smoke Exposure: No service: No Current occupational status: employed Cognitive needs: No Hearing needs: No Vision needs: Yes (perscription glasses) Social History: lives alone; has dog and 2 cats; works in [employer] Substance History: none Trauma History: bullied Coding Level of Care Code Est Pt Level 5 (83059) Diagnoses LEODAN (generalized anxiety disorder) F41.1 Major depressive disorder, recurrent, moderate F33.1 Anorexia mentalis F50.00
== END 2024-08-27 10:07 | disposition home or self-care (01) ==
LOC: HO.HOP 09:30
PROVIDERS: PCP Internal Medicine; Visit Provider Clinical Nurse Specialist Psychiatric/Mental Health
DX: F33.1 Major depressive disorder, recurrent, moderate (principal); F50.00 Anorexia nervosa, unspecified; F41.1 Generalized anxiety disorder
CPT/HCPCS: 99215

== ENCOUNTER → 2024-08-27 09:30 | Outpatient (BNVA) | payer OTHER, SELFPAY | PROVIDERS: PCP Internal Medicine; Visit Provider Clinical Nurse Specialist Psychiatric/Mental Health | DX: F33.1 Major depressive disorder, recurrent, moderate (principal); F41.1 Generalized anxiety disorder; F50.00 Anorexia nervosa, unspecified | CPT/HCPCS: 99212 ==

== ENCOUNTER 2024-08-31 07:17 | Outpatient (REF) | payer OTHER, SELFPAY ==
[2024-08-31 08:28] LABS: Syphilis Screen Reactive (Nonreactive)
[2024-08-31 08:29] LABS: HBS Num1 162.48 mIU/mL (0-7.99); HBsAGNum1 0.43 S/CO (0.00-0.99); HIV AB/AG Nonreactive (Nonreactive); HIV Num 1 0.05 S/CO (0.00-0.99); Hepatitis B Core Antibody Nonreactive (Nonreactive); Hepatitis B Surface Antigen Negative (Negative); ~Hepatitis B Surface Antibody REACTIVE (Nonreactive)
[2024-08-31 09:06] LABS: Appearance Urine Clear; Color Urine Yellow; Glucose Urine UA Negative (Negative); Leukocyte Esterase Urine Moderate (2+) (Negative); Nitrite Urine Negative (Negative); UMIC TRIGGER UA YES; Urine Blood Negative (Negative); Urine Ketones Negative (Negative); Urine Protein Negative (Neg-Trace)
[2024-08-31 09:11] LABS: Bacteria Urine None Seen (None Seen); Hyaline Casts Urine 0-2 /LPF (0-2); RBC Urine 0-2 /HPF (0-2); Squamous Epithelial Cell Urine 0-2 /HPF (0-2)
[2024-08-31 17:41] LABS: CT PCR NOT DETECTED (Not Detect.); NG PCR NOT DETECTED (Not Detect.)
[2024-09-06 15:08] LABS: RPR Quantitative Non-Reactive (Nonreactive); T.Pallidum Particle Agg Test Reactive (Nonreactive)
== END 2024-08-31 07:18 | disposition home or self-care (01) ==
LOC: HO.LAB 07:17
PROVIDERS: PCP Internal Medicine; Visit Provider Internal Medicine
DX: Z79.899 Other long term (current) drug therapy (principal); Z11.9 Encounter for screening for infectious and parasitic diseases, unspecified; Z11.3 Encounter for screening for infections with a predominantly sexual mode of transmission; Z11.59 Encounter for screening for other viral diseases
CPT/HCPCS: 36415; 81001; 81003; 86592; 86704; 86706; 86780; 87340; 87389; 87491; 87591

== ENCOUNTER 2024-09-05 06:10 | Outpatient (REF) | payer OTHER, SELFPAY ==
[2024-09-05 09:14] LABS: Appearance Urine Clear; Color Urine Yellow; Glucose Urine UA Negative (Negative); Leukocyte Esterase Urine Trace (Negative); Nitrite Urine Negative (Negative); PH 5.5 (5.0-9.0); Specific Gravity - Urine 1.025 (1.005-1.025); UMIC TRIGGER UA YES; Urine Blood Negative (Negative); Urine Ketones Negative (Negative); Urine Protein Negative (Neg-Trace)
[2024-09-05 09:23] LABS: Bacteria Urine None Seen (None Seen); Hyaline Casts Urine 0-2 /LPF (0-2); RBC Urine 0-2 /HPF (0-2); Squamous Epithelial Cell Urine 0-2 /HPF (0-2)
[2024-09-10 17:13] LABS: Treponema pallidum Ab FTA ABS Reactive (Nonreactive)
== END 2024-09-05 06:11 | disposition home or self-care (01) ==
LOC: HO.LAB 06:10
PROVIDERS: PCP Internal Medicine; Visit Provider Internal Medicine
DX: F41.9 Anxiety disorder, unspecified (principal); F32.A Depression, unspecified; Z11.3 Encounter for screening for infections with a predominantly sexual mode of transmission
CPT/HCPCS: 36415; 81001; 86780

== ENCOUNTER 2024-09-14 12:27 | Outpatient (REF) | payer OTHER, SELFPAY ==
[2024-09-17 17:13] LABS: RPR Rapid Plasma Reagin NON-REACTIVE (NON-REACTIVE)
== END 2024-09-14 12:28 | disposition home or self-care (01) ==
LOC: HO.LAB 12:27
PROVIDERS: PCP Internal Medicine; Visit Provider Internal Medicine
DX: F32.A Depression, unspecified (principal)
CPT/HCPCS: 36415; 86592

== ENCOUNTER 2024-10-22 10:38 | Outpatient (AMB) | payer OTHER, SELFPAY ==
--- NOTE | 2024-10-22 10:42 | A.OFFPSYCH_ITS ---
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 Professional Required: No Allergies No Known Allergies Allergy (Verified 04/18/24 16:55) Medication List - Last Reconciled 10/22/24 by Mindy Vogt APRN bupropion HCl XL (Wellbutrin XL) 150 mg PO QAM bupropion HCl XL (Wellbutrin XL) 300 mg PO QAM emtricitabine-tenofovir (TDF) 200-300 mg (Truvada) 1 tab PO DAILY lamotrigine (Lamictal) 50 mg (2 x 25 mg) PO DAILY@1500 90 days lamotrigine (Lamictal) 200 mg (2 x 100 mg) PO DAILY valacyclovir 500 mg PO DAILY HPI- Psychiatric Chief Complaint: follow up HPI Narrative: pt reports periods of feeleing better; when he does feel less depressed and have more energy, he is cleaning and rearranging things; he rearranges things at home and at work including other people's belongings; he says he is bursting into tears only twice a week instead of every day. No S No HI. He is still having trouble sleeping. trouble fallinfg asleep and staying asleep. PHQ9= 11 and GAD7 = 12 Past Psychiatric History: Referred by PCP for evaluation of depression and anxiety; At intake, Pt PHQ9 = 21 and LEODAN 7 = 18. pt reported significant depression for years but worse over last 2-3 years. Pt feels sad every day; cries every day; bursts into tears even when working out at the gym. He is always anxious; He wakes in the middle of the night; he says his brain just gets going and won't stop. describes thoughts being of regrets, whys, critical thoughts about himself. He reports low energy, low motivation, lack of enjoyment; he reports a history of eating disorder in response to being bullied by peers and family members for being a big child. He began using laxatives and restricting food in his 20s. He still occasionally does resorts to that but more often he works out 1-2 times a day in order to feel okay about eating. He reports not enjoying eating but does eat protein and fruits and vegetable because he knows his body needs it. He reports few friends, not close to family and a very difficult break up with S.O in December 2023. Pt denies SI or HI; no A/V Hallucination; no hx of edita Pt has tried celexa and prozac both of which caused weight gain up to 40# He does not want to take anything that could cause weight gain as he feels it could trigger eating disorder. Past Psychiatric History: no IPLOC, No IOP or PHP. He has outpatient therpaist in [facility] Subjective Subjective Subjective Medication Compliance: Yes Side effects from medications: No Review of Systems Medical Review of Systems: unchanged Mental Status Exam Mental Status Exam Patient Appearance: Appropriate Patient Orientation: Person, Place, Time and Situation Level of Consciousness: Awake Patient Behavior: Appropriate Mood Description: Anxious Affect Description: Anxious Patient Cognition Impaired: No Ability to Follow Directions: Good Speech Pattern: Appropriate Memory Description: Intact Hallucinations: None Delusions: Not Present Thought Process: Intact and Goal Oriented Thought Content: positive for Intact and positive for Goal Oriented Judgement: Fair Assessment and Plan Assessment & Plan (1) Major depressive disorder, recurrent, moderate: Status: Acute Code(s): F33.1 - Major depressive disorder, recurrent, moderate (2) LEODAN (generalized anxiety disorder): Status: Acute Code(s): F41.1 - Generalized anxiety disorder Plan increase lamictal to 200mg in am and 100mg at 3 pm continue wellbutrin XL 450mg am add trazodone 25-50 mg at bedtime. Ok to increase to 100mg if needed and lexi erated return in 4 weeks Medications: New trazodone 50 mg orally Take 1/2 to 1 tablet at bedtime PRN insomnia 30 tabs 2RF sleep lamotrigine (Lamictal) 100 mg PO DAILY@1500 90 tabs 1RF Discontinued lamotrigine (Lamictal) Discontinued Reason: Doctor's Order 50 mg (2 x 25 mg) PO DAILY@1500 90 days 180 tabs 1RF Counseling and coordination of Care Pt. Self Management counseling: Maintenance-social rhythm, Mod caffeine/ETOH intake, Nutrition education and improvement, Sleep hygiene, Behavior activation, General coping skills and Problem solving Medication management counseling: Effectiveness, Side effects, Dosing range, Duration, Drug interaction and Adherence Diagnosis and Prognosis Counseling: Accuracy of diagnosis, Prognosis over time, Impact of diagnosis on life functions, Impact of family relationship, Problematic behaviors secondary to diagnosis and Adequacy of current interventions Details: I spent 40 minutes reviewing the record, seeing the patient and documenting in the medical record. Counseling provided to the patient/caregiver as outlined below. Addressed patient/caregiver concerns regarding current medication regime including effective adherence. Addressed patient/caregiver concerns regarding diagnosis and prognosis including accuracy of diagnosis, prognosis over time, impact of diagnosis. Addressed patient/caregiver concerns regarding impact of recent stressors. [facility] Medical History (Updated 08/27/24 @ 13:00 by Mindy Vogt APRN) On pre-exposure prophylaxis for HIV Herpes Anxiety Depression Surgical History No pertinent past surgical history Family History Father COPD (chronic obstructive pulmonary disease) Myocardial infarction Mother Substance use disorder Sister Breast CA Brother Depression Other Mental health disorder Social History Housing: Apartment Alcohol intake: current Alcohol intake frequency: holidays/special occasions only Patient Tobacco Use Status: Never used Tobacco Tobacco use type: Cigarette e-Cigarette/Vaping Use: Never Used Second Hand Smoke Exposure: No service: No Current occupational status: employed Cognitive needs: No Hearing needs: No Vision needs: Yes (perscription glasses) Social History: lives alone; has dog and 2 cats; works in [employer] Substance History: none Trauma History: bullied Coding Level of Care Code Est Pt Level 4 (81851) Diagnoses Major depressive disorder, recurrent, moderate F33.1 LEODAN (generalized anxiety disorder) F41.1
== END 2024-10-22 11:12 | disposition home or self-care (01) ==
LOC: HO.HOP 10:38
PROVIDERS: PCP Internal Medicine; Visit Provider Clinical Nurse Specialist Psychiatric/Mental Health
DX: F33.1 Major depressive disorder, recurrent, moderate (principal); F41.1 Generalized anxiety disorder
CPT/HCPCS: 99214

== ENCOUNTER → 2024-10-22 10:38 | Outpatient (BNVA) | payer OTHER, SELFPAY | PROVIDERS: PCP Internal Medicine; Visit Provider Clinical Nurse Specialist Psychiatric/Mental Health | DX: F33.1 Major depressive disorder, recurrent, moderate (principal); F41.1 Generalized anxiety disorder | CPT/HCPCS: 99212 ==

== ENCOUNTER 2024-11-14 21:25 | Emergency (ER) | payer OTHER, SELFPAY ==
[2024-11-14 21:48] VITALS: BP 145/92; PULSE 115; RESP 18; TEMP 37.6; O2SAT 100; BMI 24.0
[2024-11-14 23:20] LABS: Basophils Percent Auto 0.3 % (0-2); Eosinophils Absolute Auto 0.1 X10*3/uL (0.0-0.4); Eosinophils Percent Auto 0.5 % (0-4); Hematocrit 45.6 % (42.0-52.0); Hemoglobin 15.9 g/dl (14.0-18.0); Imm Gran Abs Auto 0.05 X10*3/uL (0.00-0.03); Imm Gran Pct Auto 0.4 % (0.0-0.4); Lymphocytes Absolute Auto 1.5 X10*3/uL (1.2-4.9); Lymphocytes Percent Auto 10.7 % (20-40); MANUAL DIFF FLAG NO; Mean Corpuscular HGB Conc 34.9 g/dl (31.0-36.0); Mean Corpuscular Hemoglobin 31.9 pg (27.0-33.0); Mean Corpuscular Volume 91.6 fL (80.0-98.0); Mean Platelet Volume 9.6 fL (9.4-12.4); Monocytes Absolute Auto 1.1 X10*3/uL (0.1-1.2); Monocytes Percent Auto 7.7 % (2-11); Neutrophils Absolute Auto 10.9 x10*3/uL (2.0-8.3); Neutrophils Percent Auto 80.4 % (45-73); Platelet Count 201 X10*3/uL (160-400); Red Blood Count 4.98 X10*6/uL (4.60-5.80); Red Cell Distribution Width 12.3 % (11.0-16.0); White Blood Count 13.6 X10*3/uL (4.8-10.8)
[2024-11-14 23:22] LABS: Appearance Urine Clear; Color Urine Yellow; Glucose Urine UA Negative (Negative); Leukocyte Esterase Urine Large (3+) (Negative); Nitrite Urine Negative (Negative); PH 7.5 (5.0-9.0); UMIC TRIGGER UACC YES; Urine Blood Moderate (2+) (Negative); Urine Ketones Negative (Negative); Urine Protein Negative (Neg-Trace)
[2024-11-14 23:26] LABS: Bacteria Urine None Seen (None Seen); Hyaline Casts Urine 0-2 /LPF (0-2); RBC Urine >20 /HPF (0-2); Squamous Epithelial Cell Urine 0-2 /HPF (0-2); UACC Culture Trigger YES; WBC Urine >50 /HPF (0-5)
[2024-11-14 23:32] VITALS: BP 133/88; PULSE 101; RESP 16; TEMP 37.6; O2SAT 99
--- NOTE | 2024-11-14 23:34 | ED_ITS ---
HPI - Male Genitourinary General Chief complaint: Urogenital-Male Stated complaint: bladder infection? Time Seen by Provider: 11/14/24 23:33 Source: patient Mode of arrival: ambulatory Limitations: no limitations History of Present Illness ED Provider: Ruth Woodruff NP HPI Narrative: Patient is a 31-year-old male presents emergency department for evaluation of urinary frequency with onset earlier this afternoon. Initial nursing triage states that he has associated lower abdominal pressure, but he states this was only once earlier today before utilizing the bathroom. Has had no further episodes of abdominal pressure or pain. Feels generally fatigued, tactile fever. Denies history of urinary tract infections. He does endorsing gauging in intercourse with men. He denies concern for sexually transmitted infections states he had a full STI panel done about 1 month ago. He denies any urethral discharge. Denies any scrotal pain or swelling. No associated abdominal pain, back pain, nausea, vomiting. Related Data Previous Rx's ?Medication ?Instructions ?Recorded emtricitabine 200 mg-tenofovir 1 tab PO DAILY #90 tabs 07/31/24 disoproxil fumarate 300 mg tablet (Truvada) bupropion HCl 150 mg 24 hr tablet, 150 mg PO QAM #90 tabs 08/27/24 extended release (Wellbutrin XL) bupropion HCl 300 mg 24 hr tablet, 300 mg PO QAM #90 tabs 08/27/24 extended release (Wellbutrin XL) lamotrigine 100 mg tablet 200 mg (2 x 100 mg) PO DAILY #180 08/27/24 (Lamictal) tabs valacyclovir 500 mg tablet 500 mg PO DAILY #30 tabs 10/12/24 lamotrigine 100 mg tablet 100 mg PO DAILY@1500 #90 tabs 10/22/24 (Lamictal) trazodone 50 mg tablet 50 mg PO .COMPLEX PRN sleep #30 10/22/24 tabs cefuroxime axetil 500 mg tablet 500 mg PO BID #20 tabs 11/15/24 Allergies Allergy/AdvReac Type Severity Reaction Status Date / Time No Known Allergies Allergy Verified 11/14/24 21:50 Review of Systems 2 Review of Systems: Yes all other systems are reviewed and are negative PMFSH Past Medical History Attestation statement: The following information was validated with the patient. Source: old records reviewed Medical History On pre-exposure prophylaxis for HIV Herpes Anxiety Depression Surgical History No pertinent past surgical history Family History Family History Father COPD (chronic obstructive pulmonary disease) Myocardial infarction Mother Substance use disorder Sister Breast CA Brother Depression Other Mental health disorder Social History Social History Housing: Apartment Alcohol intake: current Alcohol intake frequency: holidays/special occasions only Patient Tobacco Use Status: Never used Tobacco Tobacco use type: Cigarette e-Cigarette/Vaping Use: Never Used Second Hand Smoke Exposure: No Advance Directives: No Advance Directives Information Provided: No service: No Current occupational status: employed Cognitive needs: No Hearing needs: No Vision needs: Yes (perscription glasses) Physical Exam 2 Vital Signs: Vital Signs: Last Vital Signs Temp 99.7 F 11/15/24 00:42 Pulse 101 H 11/15/24 00:42 Resp 16 11/15/24 00:42 BP 133/88 11/15/24 00:42 Pulse Ox 99 11/15/24 00:42 O2 Del Method Room Air 11/15/24 00:42 BMI result Body Mass Index 24.0 Appearance: Alert.?Oriented to person, place and time. No acute distress.?Normal affect.? CVS: Heart sounds normal. Normal heart rate and rhythm.? Pulses normal.?? Respiratory: No respiratory distress.? Lung sounds clear to auscultation bilaterally?? Abdomen: Soft and non-tender. Normoactive bowel sounds. No CVAT Skin: Skin warm and dry.? Normal skin color.? Extremities: No lower extremity edema.? Neuro: Moves all extremities spontaneously. Sensation intact bilaterally. Ambulates with normal steady gait. Medical Decision Making Medical Decision Making MDM Narrative: Patient is a 31-year-old male presents emergency department for evaluation of urinary frequency as per HPI. Is overall well-appearing, nontoxic, afebrile abdominal examination is benign, no CVA tenderness. On review he has a mild leukocytosis 13,600 with left shift, no electrolyte derangement, no ALISE, LFTs within normal range. Urinalysis with microscopic hematuria and evidence to suggest urinary tract infection. He has been started on a course of cefuroxime prescription has been sent to the pharmacy. Though he denies overt concern for sexually transmitted infection urine has been sent for chlamydia/gonorrhea screening, declines prophylactic treatment at this time. We discussed strict return precautions. Worrisome signs and symptoms that would warrant re- evaluation in the emergency department. All questions answered. Stable for discharge patient elected to leave the ED before providing sample for CT/NG Differential Diagnosis Differential Diagnoses: The differential diagnosis associated with the presentation includes (See narrative above) Lab Data MDM Lab Attestation statement: I reviewed the patient's lab results. (See narrative above) 11/14/24 23:11 11/14/24 23:11 Labs: Lab Results 11/14/24 Range/Units 23:11 WBC 13.6 H (4.8-10.8) X10*3/uL RBC 4.98 (4.60-5.80) X10*6/uL Hgb 15.9 (14.0-18.0) g/dl Hct 45.6 (42.0-52.0) % MCV 91.6 (80.0-98.0) fL MCH 31.9 (27.0-33.0) pg MCHC 34.9 (31.0-36.0) g/dl RDW 12.3 (11.0-16.0) % Plt Count 201 (160-400) X10*3/uL MPV 9.6 (9.4-12.4) fL Immature Gran % (Auto) 0.4 (0.0-0.4) % Neut % (Auto) 80.4 H (45-73) % Lymph % (Auto) 10.7 L (20-40) % [place] % (Auto) 7.7 (2-11) % Eos % (Auto) 0.5 (0-4) % Baso % (Auto) 0.3 (0-2) % Lymph # (Auto) 1.5 (1.2-4.9) X10*3/uL [place] # (Auto) 1.1 (0.1-1.2) X10*3/uL Eos # (Auto) 0.1 (0.0-0.4) X10*3/uL Baso # (Auto) 0.0 (0.0-0.2) X10*3/uL Abs Immat Gran (auto) 0.05 H (0.00-0.03) X10*3/uL Absolute Neuts (auto) 10.9 H (2.0-8.3) x10*3/uL Absolute Nucleated RBC 0.000 (0.0-0.012) X10*3/uL Nucleated RBC % (auto) 0.0 (0.0-0.2) /100WBC Sodium 139 (135-145) mmol/L Potassium 3.8 (3.3-5.1) mmol/L Chloride 107 (96-108) mmol/L Carbon Dioxide 26 (22-29) mmol/L Anion Gap 10 L (12-20) BUN 17 H (9-16) mg/dL Creatinine 0.93 (0.5-1.4) mg/dL Estim Creat Clear Calc 114.7 Estimated GFR > 60 Random Glucose 89 (60-115) mg/dL Calcium 9.4 (8.4-10.2) mg/dL Total Bilirubin 0.7 (0.0-1.0) mg/dL AST 22 (5-37) U/L ALT 34 (0-40) U/L Alkaline Phosphatase 97 (39-117) U/L Total Protein 7.6 (6.5-8.0) g/dL Albumin 4.5 (3.5-5.0) g/dL Urine Color Yellow Urine Appearance Clear Urine pH 7.5 (5.0-9.0) Ur Specific [place] 1.010 (1.005-1.025) Urine Protein Negative (Neg-Trace) mg/dL Urine Glucose (UA) Negative (Negative) mg/dL Urine Ketones Negative (Negative) mg/dL Urine Blood Moderate (2+) H (Negative) Urine Nitrite Negative (Negative) Ur Leukocyte Esterase Large (3+) H (Negative) Urine RBC >20 H (0-2) /HPF Urine WBC >50 H (0-5) /HPF Ur Squamous Epith Cells 0-2 (0-2) /HPF Urine Bacteria None Seen (None Seen) Hyaline Casts 0-2 (0-2) /LPF External Record Review External record reviewed: Outpatient record Prescription Management I considered prescription management with: Pain Medication (Acetaminophen/ibuprofen as necessary) and Antibiotic Discharge Plan Discharge Clinical Impression: Urinary tract infection Patient Disposition: Home, Self-Care Instructions: Urinary Tract Infection in Men (ED) Additional Instructions: Prescription for antibiotic has been sent to your pharmacy to treat urinary tract infection. Testing for chlamydia and gonorrhea has been sent but will not result today who received a call from the hospital in the next few days this would be to discuss any positive results. You will not receive a call for negative results. Please contact your primary care provider to arrange for a follow-up visit. Return with any new or worsening symptoms or concerns such as pain, fevers, chills, abdominal pain back pain, nausea, vomiting. Prescriptions: New cefuroxime axetil 500 mg tablet 500 mg PO BID Qty: 20 0RF No Action emtricitabine-tenofovir (TDF) [Truvada] 200-300 mg tablet 1 tab PO DAILY Qty: 90 0RF valacyclovir 500 mg tablet 500 mg PO DAILY Qty: 30 1RF bupropion HCl [Wellbutrin XL] 150 mg tablet extended release 24 hr 150 mg PO QAM Qty: 90 1RF bupropion HCl [Wellbutrin XL] 300 mg tablet extended release 24 hr 300 mg PO QAM Qty: 90 1RF lamotrigine [Lamictal] 100 mg tablet 200 mg PO DAILY Qty: 180 1RF lamotrigine [Lamictal] 100 mg tablet 100 mg PO DAILY@1500 Qty: 90 1RF trazodone 50 mg tablet 50 mg PO .COMPLEX PRN (Reason: sleep) Qty: 30 2RF Rx Instructions: 50 mg orally Take 1/2 to 1 tablet at bedtime PRN insomnia Referrals: Herbert Bellamy MD [Primary Care Provider] - Interventions: ED Discharge Assessment Last Done: 11/15/24 00:42 Discharge Date/Time: 11/15/24 00:42 Print Language: Kyrgyz
[2024-11-14 23:39] LABS: Alanine Aminotransferase 34 U/L (0-40); Albumin Level 4.5 g/dL (3.5-5.0); Alkaline Phosphatase 97 U/L (39-117); Anion Gap 10 (12-20); Aspartate Amino Transferase 22 U/L (5-37); Bilirubin Total 0.7 mg/dL (0.0-1.0); Blood Urea Nitrogen 17 mg/dL (9-16); Calcium 9.4 mg/dL (8.4-10.2); Carbon Dioxide 26 mmol/L (22-29); Chloride 107 mmol/L (96-108); Creatinine Clr Calc Pharmacy 114.7; Estimated Glomerular Filt Rate > 60; Glucose Random 89 mg/dL (60-115); Potassium 3.8 mmol/L (3.3-5.1); Sodium 139 mmol/L (135-145); Total Protein 7.6 g/dL (6.5-8.0)
[2024-11-15 00:42] VITALS: BP 133/88; PULSE 101; RESP 16; TEMP 37.6; O2SAT 99
== END 2024-11-15 00:42 | disposition home or self-care (01) ==
PROVIDERS: Emergency Provider Emergency Medicine; PCP Internal Medicine
DX: N39.0 Urinary tract infection, site not specified (principal); R35.0 Frequency of micturition
CPT/HCPCS: 36415; 80053; 81001; 85025; 87086; 87088; 87186; 99283

== ENCOUNTER 2024-11-22 09:16 | Outpatient (AMB) | payer OTHER, SELFPAY ==
--- NOTE | 2024-11-22 09:17 | MHC.PC.OV ---
Intake Visit Reasons: discuss medication Parliamentary Archivist Required: No Can Labeler: Not Required per policy Accompanied by: Self / Same As Patient Allergies No Known Allergies Allergy (Verified 11/22/24 09:48) Medication List - Last Reconciled 11/22/24 by Bernarda Jasmine PA-C bupropion HCl XL (Wellbutrin XL) 150 mg PO QAM bupropion HCl XL (Wellbutrin XL) 300 mg PO QAM doxycycline hyclate 200 mg (2 x 100 mg) PO ONCE emtricitabine-tenofovir (TDF) 200-300 mg (Truvada) 1 tab PO DAILY lamotrigine (Lamictal) 200 mg (2 x 100 mg) PO DAILY lamotrigine (Lamictal) 100 mg PO DAILY@1500 nitrofurantoin monohyd/m-cryst 100 mg (Macrobid) 100 mg PO Q12H 7 days trazodone 50 mg orally Take 1/2 to 1 tablet at bedtime PRN insomnia valacyclovir 500 mg PO DAILY Tobacco use date assessed: 04/18/24 Dental Screening Dental Screen Date: 11/22/24 Did you have a dental visit in the last 12 months?: Yes Did you have a dental problem in the last 6 months where you did not have access to dental care?: No Was dental information given to patient?: Patient has dentist [facility] Medical History (Updated 11/22/24 @ 09:54 by Bernarda Jasmine PA-C) Medication management On pre-exposure prophylaxis for HIV Herpes Anxiety Depression Surgical History No pertinent past surgical history Family History Father COPD (chronic obstructive pulmonary disease) Myocardial infarction Mother Substance use disorder Sister Breast CA Brother Depression Other Mental health disorder Social History Housing: Apartment Alcohol intake: current Alcohol intake frequency: holidays/special occasions only Patient Tobacco Use Status: Never used Tobacco Tobacco use type: Cigarette e-Cigarette/Vaping Use: Never Used Second Hand Smoke Exposure: No service: No Current occupational status: employed Cognitive needs: No Hearing needs: No Vision needs: Yes (perscription glasses) Questionnaire PHQ-9 Over the last 2 weeks, how often have you been bothered by any of the following problems? 1. Little interest or pleasure in doing things: nearly every day 2. Feeling down, depressed, or hopeless: nearly every day (in treatment) 3. Trouble falling or staying asleep, or sleeping too much: more than half the days 4. Feeling tired or having little energy: nearly every day 5. Poor appetite or overeating: not at all 6. Feeling bad about yourself - or that you are a failure or have let yourself or your family down: nearly every day 7. Trouble concentrating on things, such as reading the newspaper or watching television: more than half the days 8. Moving or speaking so slowly that other people could have noticed. Or the opposite - being so fidgety or restless that you have been moving around a lot more than usual: not at all 9. Thoughts that you would be better off or of hurting yourself in some way: not at all Total score: 16 Depression Screening Interpretation: Positive Depression Screening Done: Yes Source: Developed by Drs. Troy Meneses, Ilene Bejarano, Hua Patton and colleagues, with an educational whitley from [employer]. Thrive Questionnaire Date Thrive assessed: 11/22/24 I am a: Patient What is your living situation today?: I have a steady place to live Within the past 12 months, did the food you bought not last and you didn't have the money to get more?: Never true Within the past 12 months, did you worry whether your food would run out before you got money to buy more?: Never true Do you have trouble paying for medicines?: No Do you have trouble getting transportation to medical appointments?: No Do you have trouble paying your heating and electricity bill?: No Do you have trouble taking care of your child, family member or friend?: No Do you have trouble with day-to-day activities such as bathing, preparing meals, shopping, managing finances, etc.?: No Are you currently unemployed and looking for a job?: No Are you interested in more education?: No Please select the resources that you would like help with: None Currently or been in a relationship where the following occur: No concerns reported THRIVE Score: 0 AUDIT C Alcohol Use Questionnaire (AUDIT-C) 1. How often do you have a drink containing alcohol?: Monthly or less Total Score: 1 LEODAN-7 AMB Questionnaire LEODAN-7 Date LEODAN - 7 assessed: 11/22/24 Feeling nervous, anxious, or on edge: 3 = Nearly every day (in treatment) Not being able to stop or control worryin = More than half the days Worrying too much about different things: 2 = More than half the days Trouble relaxin = Nearly every day Being so restless that it is hard to sit still: 2 = More than half the days Becoming easily annoyed or irritable: 3 = Nearly every day Feeling afraid as if something awful might happen: 1 = Several days Total LEODAN-7 score (0-4 normal; 5-9 mild; 10-14 moderate; 15-21 severe): 16 Source: Developed by Drs. Troy Meneses, Ilene Bejarano, Hua Patton and colleagues, with an educational whitley from [employer]. Physical exam (Primary Care) Tobacco/Smoking Status: Tobacco use Status Tobacco use date assessed 04/18/24 11/22/24 09:20 Patient Tobacco Use Status Never used Tobacco 11/22/24 09:20 Tobacco use type Cigarette 11/22/24 09:20 e-Cigarette/Vaping Use Never Used 11/22/24 09:20 PHQ-9: PHQ-9 Score PHQ-9: Total score 16 11/22/24 09:20 Depression Screening Interpretation: Positive Thrive Assessment: Date of Thrive Assessment Date Thrive assessed 11/22/24 11/22/24 09:20 Currently or been in a relationship where the following occur: No concerns reported Telehealth Telehealth Telehealth Platform: Telephone Location of provider rendering services: practice address Location of patient: address on file Patient Identification confirmed using: Name, : Yes Telehealth method: voice only Patient verbally consented to treatment: Yes Patient verbally consented to billing insurance company: Yes Patient informed of any privacy concerns related to visit: Yes Minutes spent on Phone/Video with Pt.: 15 Coding Level of Care Code Tele Est Pt Level 4 (70458) Complex EM visit Add On G2211 Diagnoses On pre-exposure prophylaxis for HIV Z79.899 Herpes B00.9 LEODAN (generalized anxiety disorder) F41.1 Major depressive disorder, recurrent, moderate F33.1 Medication management Z79.899 Assessment & Plan Assessment & Plan (1) On pre-exposure prophylaxis for HIV: Code(s): Z79.899 - 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 Truvada Taking as prescribed. Requesting doxy prep for prevention of sexually transmitted infections. Will send a prescription. Will also order labs for HIV, hepatitis-C, gonorrhea, chlamydia, RPR for syphilis. Will continue to monitor. (2) Herpes: Code(s): B00.9 - Herpesviral infection, unspecified Category: Medical Plan: Patient currently on Valtrex. Taking as prescribed. Condition is chronic and stable continue to monitor. (3) LEODAN (generalized anxiety disorder): Code(s): F41.1 - Generalized anxiety disorder Category: Medical Plan: Patient on Wellbutrin, Lamictal. Condition is chronic and stable continue to monitor. (4) Major depressive disorder, recurrent, moderate: Code(s): F33.1 - Major depressive disorder, recurrent, moderate Category: Medical Plan: Patient on Wellbutrin, Lamictal. Condition is chronic and stable continue to monitor. (5) Medication management: Code(s): Z79.899 - Other middle or intermediate school principal (current) drug therapy Category: Medical Plan: Will start patient on doxy prep. Explained to him that doxycycline 200 mg is taken once orally within 72 hours of condomless oral, anal, or vaginal sex, with a maximum dose of 200 mg each day.. Will continue to monitor. Plan Plan - Continue current medication regimen including Bupropion, Emtricitabine/Tenofovir, Lamotrigine, Trazodone, and Valacyclovir as needed. - Prescribe finasteride/minoxidil as requested by the patient for daily use. - Order routine blood work including hepatitis, gonorrhea, chlamydia and HIV screenings, with consideration for syphilis testing. - Start doxycycline use in conjunction with pre-exposure prophylaxis as mentioned by the patient. - No fasting required for upcoming blood work. - Update medication list and ensure prescription refills are current. Orders: Orders Chlamydia Culture Today B00.9 - Herpesviral infection, unspecified, Z79.899 - Other middle or intermediate school principal (current) drug therapy HIV Ab/Ag Today B00.9 - Herpesviral infection, unspecified, Z79.899 - Other fdc (current) drug therapy RPR Monitor reflex titer Today B00.9 - Herpesviral infection, unspecified, Z79.899 - Other middle or intermediate school principal (current) drug therapy Hepatitis C Antibody Today B00.9 - Herpesviral infection, unspecified, Z79.899 - Other middle or intermediate school principal (current) drug therapy N. gonorr culture reflex susc Today B00.9 - Herpesviral infection, unspecified, Z79.899 - Other middle or intermediate school principal (current) drug therapy Medications: New doxycycline hyclate doxycycline 200 mg is taken once orally within 72 hours of condomless oral, anal, or vaginal sex, with a maximum dose of 200 mg each day. 200 mg (2 x 100 mg) PO ONCE 30 tabs 2RF prevention of sexually transmitted diseases Patient Instructions: Patient Instructions - Continue the current medication regimen as prescribed. - Attend upcoming blood work screening as scheduled. - Monitor for any changes in symptoms or new side effects and report them promptly. - Use the patient portal to provide additional details on doxycycline. - Await follow-up communication for lab results. - Ensure prescriptions are picked up from the designated pharmacy. Scribe Plan - Not visible on output: History of Present Illness The patient is a 39-year-old male presenting with medication management and follow-up. The patient reports ongoing use of finasteride and minoxidil at a dose of 4.2 mg daily being prescribed from online hims . The patient has been tolerating the medication well without significant issues. Additionally, the patient continues to use other medications including Bupropion, Emtricitabine/Tenofovir, Lamotrigine, Trazodone, and Valacyclovir as needed. Previous lab work conducted on the fifth was reported as normal, and the patient requests continuation and management of current prescriptions. Discussion regarding blood work showed a need for routine screening, such as hepatitis and HIV, with syphilis also considered for evaluation. The patient inquired about initiating doxycycline for reasons for prevention of sexually transmitted diseases. Health Maintenance - Recent lab work conducted with normal results. - Routine screening blood work ordered, including hepatitis, HIV, and syphilis if necessary. Social History - Not discussed. Review of Systems - General: Denies new symptoms or concerns. - Dermatological: Reports using finasteride daily with toleration. - Psychiatric: Continues Bupropion and Trazodone use. - Neurological: Continues Lamotrigine use. - Endocrinology/Immunology: Continues Emtricitabine/Tenofovir use. Results - Labs: Previous blood work reported as normal, additional blood work ordered including hepatitis and HIV screening. Plan - Continue current medication regimen including Bupropion, Emtricitabine/Tenofovir, Lamotrigine, Trazodone, and Valacyclovir as needed. - Prescribe finasteride/minoxidil as requested by the patient for daily use. - Order routine blood work including hepatitis, gonorrhea, chlamydia and HIV screenings, with consideration for syphilis testing. - Start doxycycline use in conjunction with pre-exposure prophylaxis as mentioned by the patient. - No fasting required for upcoming blood work. - Update medication list and ensure prescription refills are current. Patient was informed and verbally consented to the use of an ambient scribe for clinic note documentation during this visit. Discussion Notes During the consultation, I informed the patient of the decision to continue his current medication regimen. I explained the blood work results were normal and outlined the need for routine screenings, such as hepatitis and HIV, in follow-ups. We discussed starting doxycycline potentially, and I requested that the patient provide information via the patient portal for further clarification. This includes a possible discussion with Dr. Okeefe about its appropriate use. I confirmed that no fasting was necessary before the blood work and assured the patient I would follow up with results via a call or the patient portal. Patient Instructions - Continue the current medication regimen as prescribed. - Attend upcoming blood work screening as scheduled. - Monitor for any changes in symptoms or new side effects and report them promptly. - Use the patient portal to provide additional details on doxycycline. - Await follow-up communication for lab results. - Ensure prescriptions are picked up from the designated pharmacy.
== END 2024-11-22 10:06 | disposition home or self-care (01) ==
LOC: HO.HMCH 09:16
PROVIDERS: PCP Internal Medicine; Visit Provider Physician Assistant Medical
DX: F41.1 Generalized anxiety disorder (principal); Z79.899 Other long term (current) drug therapy; B00.9 Herpesviral infection, unspecified; F33.1 Major depressive disorder, recurrent, moderate

== ENCOUNTER 2024-12-04 09:55 | Outpatient (AMB) | payer OTHER, SELFPAY ==
--- NOTE | 2024-12-04 10:15 | A.OFFPSYCH_ITS ---
Intake Intake Visit Reasons: follow up Document Improvement Specialist Required: No Allergies No Known Allergies Allergy (Verified 11/22/24 09:48) Medication List - Last Reconciled 12/04/24 by Mindy Vogt APRN bupropion HCl XL (Wellbutrin XL) 150 mg PO QAM bupropion HCl XL (Wellbutrin XL) 300 mg PO QAM doxycycline hyclate 200 mg (2 x 100 mg) PO ONCE emtricitabine-tenofovir (TDF) 200-300 mg (Truvada) 1 tab PO DAILY lamotrigine (Lamictal) 200 mg (2 x 100 mg) PO DAILY lamotrigine (Lamictal) 100 mg PO DAILY@1500 nitrofurantoin monohyd/m-cryst 100 mg (Macrobid) 100 mg PO Q12H 7 days trazodone 50 mg orally Take 1/2 to 1 tablet at bedtime PRN insomnia valacyclovir 500 mg PO DAILY HPI- Psychiatric Chief Complaint: follow up HPI Narrative: Pt reports continued symptoms although he says the symptoms cause him little difficulty, little distress and he feels he can cope with them; He reports he is happy with current medications and does not want to change medications; he still has trouble sleeping but dfeels the trazodone is too heavy and makes him feel sedated in am so he only takes on days he doesn't have to work; he enjoys working; he says he is an intrvert and does not socialize much outside of work. No si No hi . no psychoosis; no edita; He can not find a therapist and would benefit from therapy; We discussed him return ing ot PCP care and continuing with same meds; I ordered labs : TSH as he has run low in past and that could contribute to anxiety and mood; I also ordred cmp tnaf lamictal level. Past Psychiatric History: Referred by PCP for evaluation of depression and anxiety; At intake, Pt PHQ9 = 21 and LEODAN 7 = 18. pt reported significant depr ession for years but worse over last 2-3 years. Pt feels sad every day; cries every day; bursts into tears even when working out at the gym. He is always anxious; He wakes in the middle of the night; he says his brain just gets going and won't stop. describes thoughts being of regrets, whys, critical thoughts about himself. He reports low energy, low motivation, lack of enjoyment; he reports a history of eating disorder in response to being bullied by peers and family members for being a big child. He began using laxatives and restricting food in his 20s. He still occasionally does resorts to that but more often he works out 1-2 times a day in order to feel okay about eating. He reports not enjoying eating but does eat protein and fruits and vegetable because he knows his body needs it. He reports few friends, not close to family and a very difficult break up with S.O in December 2023. Pt denies SI or HI; no A/V Hallucination; no hx of edita Pt has tried celexa and prozac both of which caused weight gain up to 40# He does not want to take anything that could cause weight gain as he feels it could trigger eating disorder. Past Psychiatric History: no IPLOC, No IOP or PHP. He has outpatient therpaist in [facility] Subjective Subjective Subjective Medication Compliance: Yes Side effects from medications: No Review of Systems Medical Review of Systems: unchanged Mental Status Exam Mental Status Exam Patient Appearance: Appropriate Patient Orientation: Person, Place, Time and Situation Level of Consciousness: Appropriate and Alert Patient Behavior: Appropriate and Cooperative Mood Description: Appropriate Affect Description: Appropriate Patient Cognition Impaired: No Ability to Follow Directions: Good Speech Pattern: Clear, Appropriate and Coherent Memory Description: Intact Hallucinations: None Delusions: Not Present Thought Process: Intact and Goal Oriented Thought Content: positive for Intact and positive for Goal Oriented Judgement: Fair Assessment and Plan Assessment & Plan (1) LEODAN (generalized anxiety disorder): Status: Acute Code(s): F41.1 - Generalized anxiety disorder (2) Major depressive disorder, recurrent, moderate: Status: Acute Code(s): F33.1 - Major depressive disorder, recurrent, moderate (3) Long-term use of high-risk medication: Status: Acute Code(s): Z79.899 - Other mcc (current) drug therapy Plan continue meds below restart vitamin D 2000 IU daily due to low vitamin d level Medications: New cholecalciferol (vitamin D3) 50 mcg PO DAILY 30 caps 2RF Refilled bupropion HCl XL (Wellbutrin XL) 150 mg PO QAM 90 tabs 1RF lamotrigine (Lamictal) 100 mg PO DAILY@1500 90 tabs 1RF trazodone 50 mg orally Take 1/2 to 1 tablet at bedtime PRN insomnia 30 tabs 2RF sleep bupropion HCl XL (Wellbutrin XL) 300 mg PO QAM 90 tabs 1RF lamotrigine (Lamictal) 200 mg (2 x 100 mg) PO DAILY 180 tabs 1RF Orders: Orders TSH reflex Free T4 Today F41.1 - Generalized anxiety disorder, F50.00 - Anorexia nervosa, unspecified Comprehensive Met. Panel Today Z79.899 - Other terminal operations manager (current) drug therapy Lamotrigine Lamictal Today Z79.899 - Other terminal operations manager (current) drug therapy Counseling and coordination of Care Pt. Self Management counseling: Mod caffeine/ETOH intake, Nutrition education and improvement, Sleep hygiene and Behavior activation Medication management counseling: Effectiveness, Side effects, Dosing range, Duration, Drug interaction and Adherence Diagnosis and Prognosis Counseling: Accuracy of diagnosis, Prognosis over time, Impact of diagnosis on life functions, Impact of family relationship, Problematic behaviors secondary to diagnosis and Adequacy of current interventions Details: I spent 35 minutes reviewing the record, seeing the patient and documenting in the medical record. Counseling provided to the patient/caregiver as outlined below. Addressed patient/caregiver concerns regarding current medication regime including effective adherence. Addressed patient/caregiver concerns regarding diagnosis and prognosis including accuracy of diagnosis, prognosis over time, impact of diagnosis. Addressed patient/caregiver concerns regarding impact of recent stressors. [facility] Medical History (Updated 12/04/24 @ 10:23 by Mindy Vogt APRN) Medication management On pre-exposure prophylaxis for HIV Herpes Anxiety Depression Surgical History No pertinent past surgical history Family History Father COPD (chronic obstructive pulmonary disease) Myocardial infarction Mother Substance use disorder Sister Breast CA Brother Depression Other Mental health disorder Social History Housing: Apartment Alcohol intake: current Alcohol intake frequency: holidays/special occasions only Patient Tobacco Use Status: Never used Tobacco Tobacco use type: Cigarette e-Cigarette/Vaping Use: Never Used Second Hand Smoke Exposure: No service: No Current occupational status: employed Cognitive needs: No Hearing needs: No Vision needs: Yes (perscription glasses) Social History: lives alone; has dog and 2 cats; works in [email or web address] Substance History: none Trauma History: bullied Coding Level of Care Code Est Pt Level 4 (18380) Diagnoses LEODAN (generalized anxiety disorder) F41.1 Major depressive disorder, recurrent, moderate F33.1 Long-term use of high-risk medication Z79.899
== END 2024-12-04 10:30 | disposition home or self-care (01) ==
LOC: HO.HOP 09:55
PROVIDERS: PCP Internal Medicine; Visit Provider Clinical Nurse Specialist Psychiatric/Mental Health
DX: F41.1 Generalized anxiety disorder (principal); F33.1 Major depressive disorder, recurrent, moderate; Z79.899 Other long term (current) drug therapy
CPT/HCPCS: 99214

== ENCOUNTER → 2024-12-04 09:55 | Outpatient (BNVA) | payer OTHER, SELFPAY | PROVIDERS: PCP Internal Medicine; Visit Provider Clinical Nurse Specialist Psychiatric/Mental Health | DX: F41.1 Generalized anxiety disorder (principal); F33.1 Major depressive disorder, recurrent, moderate; F50.00 Anorexia nervosa, unspecified; Z71.89 Other specified counseling; Z79.899 Other long term (current) drug therapy | CPT/HCPCS: 99212 ==

== ENCOUNTER 2024-12-12 09:16 | Outpatient (REF) | payer OTHER, SELFPAY ==
[2024-12-12 10:32] LABS: Alanine Aminotransferase 65 U/L (0-40); Albumin Level 4.7 g/dL (3.5-5.0); Alkaline Phosphatase 87 U/L (39-117); Anion Gap 9 (12-20); Aspartate Amino Transferase 73 U/L (5-37); Bilirubin Total 0.8 mg/dL (0.0-1.0); Blood Urea Nitrogen 10 mg/dL (9-16); Calcium 10.1 mg/dL (8.4-10.2); Carbon Dioxide 28 mmol/L (22-29); Chloride 108 mmol/L (96-108); Estimated Glomerular Filt Rate > 60; Glucose Random 96 mg/dL (60-115); Potassium 4.2 mmol/L (3.3-5.1); Sodium 141 mmol/L (135-145); Total Protein 7.8 g/dL (6.5-8.0)
[2024-12-12 10:54] LABS: TSH reflex Free T4 0.82 uIU/mL (0.32-4.0)
[2024-12-12 10:56] LABS: HIV AB/AG Nonreactive (Nonreactive); HIV Num 1 0.17 S/CO (0.00-0.99); ~Hepatitis C Antibody Nonreactive (Nonreactive)
[2024-12-13 18:13] LABS: RPR Rapid Plasma Reagin NON-REACTIVE (NON-REACTIVE)
== END 2024-12-12 09:17 | disposition home or self-care (01) ==
LOC: HO.LAB 09:16
PROVIDERS: PCP Internal Medicine; Referring Provider Clinical Nurse Specialist Psychiatric/Mental Health; Visit Provider Physician Assistant Medical
DX: B00.9 Herpesviral infection, unspecified (principal); F41.1 Generalized anxiety disorder; F50.00 Anorexia nervosa, unspecified; Z79.899 Other long term (current) drug therapy
CPT/HCPCS: 36415; 80053; 80175; 84443; 86592; 86803; 87389

== ENCOUNTER 2025-01-21 09:35 | Outpatient (AMB) | payer OTHER, SELFPAY ==
--- NOTE | 2025-01-21 09:50 | MHC.OFFVISPS ---
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 Allergies No Known Allergies Allergy (Verified 11/22/24 09:48) Medication List - Last Reconciled 01/21/25 by Mindy Vogt APRN bupropion HCl XL (Wellbutrin XL) 150 mg PO QAM bupropion HCl XL (Wellbutrin XL) 300 mg PO QAM cholecalciferol (vitamin D3) 50 mcg PO DAILY doxycycline hyclate 200 mg (2 x 100 mg) PO ONCE emtricitabine-tenofovir (TDF) 200-300 mg 1 tab PO DAILY lamotrigine (Lamictal) take 2 tabs in am and 1 tab in the evening every day orally daily; trazodone 50 mg orally Take 1/2 to 1 tablet at bedtime PRN insomnia valacyclovir 500 mg PO DAILY HPI- Psychiatric Chief Complaint: f/u consultation HPI Narrative: Pt here for follow up of rash on face and concerns about Lamictal. He presents in no acute distress. Using the Dermatologic Drug Eruption Scale (from carlat report) He scores a 2 upon physical evaluation: He reports flushing of forehead and cheeks. No raised red rash noted, no peeling or excoriation, no blisters. no lymphadenopathy. No malaise, no flu like symptoms. Temp is 99.7 although record shows this is his usual baseline temp. Pt has reduced lamictal 300mg daily to 100mg daily with no ill effects. Past Psychiatric History: Referred by PCP for evaluation of depression and anxiety; At intake, Pt PHQ9 = 21 and LEODAN 7 = 18. pt reported significant depression for years but worse over last 2-3 years. Pt feels sad every day; cries every day; bursts into tears even when working out at the gym. He is always anxious; He wakes in the middle of the night; he says his brain just gets going and won't stop. describes thoughts being of regrets, whys, critical thoughts about himself. He reports low energy, low motivation, lack of enjoyment; he reports a history of eating disorder in response to being bullied by peers and family members for being a big child. He began using laxatives and restricting food in his 20s. He still occasionally does resorts to that but more often he works out 1-2 times a day in order to feel okay about eating. He reports not enjoying eating but does eat protein and fruits and vegetable because he knows his body needs it. He reports few friends, not close to family and a very difficult break up with S.O in December 2023. Pt denies SI or HI; no A/V Hallucination; no hx of edita Pt has tried celexa and prozac both of which caused weight gain up to 40# He does not want to take anything that could cause weight gain as he feels it could trigger eating disorder. Past Psychiatric History: no IPLOC, No IOP or PHP. He has outpatient therpaist in [place] [facility] Subjective Subjective Subjective Medication Compliance: Yes Side effects from medications: Yes (possible rash/flusing) Review of Systems Medical Review of Systems: changed (flushing of cheeks and forehead ) Mental Status Exam Mental Status Exam Patient Appearance: Well Grooomed and Appropriate Patient Orientation: Person, Place, Time and Situation Level of Consciousness: Awake, Appropriate and Alert Patient Behavior: Appropriate, Cooperative and Good Eye Contact Mood Description: Appropriate Affect Description: Appropriate Patient Cognition Impaired: No Ability to Follow Directions: Good Speech Pattern: Clear Memory Description: Intact Hallucinations: None Delusions: Not Present Thought Process: Intact and Goal Oriented Thought Content: positive for Intact and positive for Goal Oriented Judgement: Good Assessment and Plan Assessment & Plan (1) Long-term use of high-risk medication: Status: Acute Code(s): Z79.899 - Other jail (current) drug therapy (2) LEODAN (generalized anxiety disorder): Status: Acute Code(s): F41.1 - Generalized anxiety disorder (3) Major depressive disorder, recurrent, moderate: Status: Acute Code(s): F33.1 - Major depressive disorder, recurrent, moderate (4) Rash: Status: Acute Code(s): R21 - Rash and other nonspecific skin eruption Plan Appears to be benign rash possibily related to aalmictal; does not appear to have features of Stene Johnsons syndrome or acute allergy; no peeling or excoriated skin, no swollenlymph nodes, no fever, labs are in normal range including eosinophils and LFTS, n SOB no wheezing Reduce lamictal to 50mg today and then stop. return in 4 weeks call if worsens or got o ED or call 911 if SOB, wheezing, fever Medications: Discontinued lamotrigine (Lamictal) Discontinued Reason: Patient no longer taking take 2 tabs in am and 1 tab in the evening every day orally daily; 270 tabs 1RF Counseling and coordination of Care Pt. Self Management counseling: Med illness tx adherence and General coping skills Medication management counseling: Effectiveness, Side effects, Dosing range, Duration, Drug interaction and Adherence Diagnosis and Prognosis Counseling: Accuracy of diagnosis, Prognosis over time, Impact of diagnosis on life functions, Impact of family relationship, Problematic behaviors secondary to diagnosis and Adequacy of current interventions Details: I spent 45 minutes reviewing the record, seeing the patient and documenting in the medical record. Counseling provided to the patient/caregiver as outlined below. Addressed patient/caregiver concerns regarding current medication regime including effective adherence. Addressed patient/caregiver concerns regarding diagnosis and prognosis including accuracy of diagnosis, prognosis over time, impact of diagnosis. Addressed patient/caregiver concerns regarding impact of recent stressors. [facility] Medical History (Updated 01/21/25 @ 12:38 by Mindy Vogt APRN) Medication management On pre-exposure prophylaxis for HIV Herpes Anxiety Depression Surgical History No pertinent past surgical history Family History Father COPD (chronic obstructive pulmonary disease) Myocardial infarction Mother Substance use disorder Sister Breast CA Brother Depression Other Mental health disorder Social History Housing: Apartment Alcohol intake: current Alcohol intake frequency: holidays/special occasions only Patient Tobacco Use Status: Never used Tobacco Tobacco use type: Cigarette e-Cigarette/Vaping Use: Never Used Second Hand Smoke Exposure: No service: No Current occupational status: employed Cognitive needs: No Hearing needs: No Vision needs: Yes (perscription glasses) Social History: lives alone; has dog and 2 cats; works in [employer] Substance History: none Trauma History: bullied Coding Level of Care Code Est Pt Level 5 (43095) Diagnoses Long-term use of high-risk medication Z79.899 LEODAN (generalized anxiety disorder) F41.1 Major depressive disorder, recurrent, moderate F33.1 Rash R21
[2025-01-21 12:32] VITALS: TEMP 37.6
== END 2025-01-21 09:56 | disposition home or self-care (01) ==
LOC: HO.HOP 09:35
PROVIDERS: PCP Internal Medicine; Visit Provider Clinical Nurse Specialist Psychiatric/Mental Health
DX: F33.1 Major depressive disorder, recurrent, moderate (principal); F41.1 Generalized anxiety disorder; Z79.899 Other long term (current) drug therapy; R21 Rash and other nonspecific skin eruption
CPT/HCPCS: 99215

== ENCOUNTER 2025-01-21 09:35 | Outpatient (REF) | payer OTHER, SELFPAY ==
[2025-01-21 10:14] LABS: MANUAL DIFF FLAG NO
[2025-01-21 11:05] LABS: Basophils Percent Auto 0.5 % (0-2); Eosinophils Absolute Auto 0.1 X10*3/uL (0.0-0.4); Eosinophils Percent Auto 1.8 % (0-4); Hematocrit 44.8 % (42.0-52.0); Hemoglobin 15.2 g/dl (14.0-18.0); Imm Gran Abs Auto 0.01 X10*3/uL (0.00-0.03); Imm Gran Pct Auto 0.2 % (0.0-0.4); Lymphocytes Absolute Auto 1.7 X10*3/uL (1.2-4.9); Mean Corpuscular HGB Conc 33.9 g/dl (31.0-36.0); Mean Corpuscular Hemoglobin 31.4 pg (27.0-33.0); Mean Corpuscular Volume 92.6 fL (80.0-98.0); Monocytes Absolute Auto 0.3 X10*3/uL (0.1-1.2); Monocytes Percent Auto 7.3 % (2-11); Neutrophils Absolute Auto 2.3 x10*3/uL (2.0-8.3); Neutrophils Percent Auto 52.2 % (45-73); Platelet Count 211 X10*3/uL (160-400); Red Blood Count 4.84 X10*6/uL (4.60-5.80); Red Cell Distribution Width 12.2 % (11.0-16.0); White Blood Count 4.4 X10*3/uL (4.8-10.8)
[2025-01-21 11:51] LABS: Alanine Aminotransferase 22 U/L (0-40); Albumin Level 4.4 g/dL (3.5-5.0); Alkaline Phosphatase 80 U/L (39-117); Anion Gap 9 (12-20); Aspartate Amino Transferase 22 U/L (5-37); Bilirubin Total 0.5 mg/dL (0.0-1.0); Blood Urea Nitrogen 15 mg/dL (9-16); Calcium 9.8 mg/dL (8.4-10.2); Carbon Dioxide 27 mmol/L (22-29); Chloride 110 mmol/L (96-108); Estimated Glomerular Filt Rate > 60; Glucose Random 68 mg/dL (60-115); Potassium 4.6 mmol/L (3.3-5.1); Sodium 141 mmol/L (135-145); Total Protein 6.8 g/dL (6.5-8.0)
[2025-01-23 20:58] LABS: Lamotrigine Lamictal 0.6 mcg/mL (2.5-15.0)
== END 2025-01-21 09:36 | disposition home or self-care (01) ==
LOC: HO.LAB 09:35
PROVIDERS: PCP Internal Medicine; Visit Provider Clinical Nurse Specialist Psychiatric/Mental Health
DX: Z79.899 Other long term (current) drug therapy (principal); F33.1 Major depressive disorder, recurrent, moderate; F41.1 Generalized anxiety disorder; R21 Rash and other nonspecific skin eruption
CPT/HCPCS: 36415; 80053; 80175; 85025; 99212

== ENCOUNTER 2025-02-19 09:34 | Outpatient (AMB) | payer OTHER, SELFPAY ==
--- NOTE | 2025-02-19 09:38 | A.OFFPSYCH_ITS ---
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 He is more anxious off the lamictal. He reports depression stable, low level but tolerable and feels the wellbutrin helps. He reports the nxiety is harder to cope with. He denies SI or HI. He os functioning well at work and exercising regularly which he says helps his mood. PHQ9=12 and GAD7=14. Past Psychiatric History: Referred by PCP for evaluation of depression and anxiety; At intake, Pt PHQ9 = 21 and LEODAN 7 = 18. pt reported significant depression for years but worse over last 2-3 years. Pt feels sad every day; cries every day; bursts into tears even when working out at the gym. He is always anxious; He wakes in the middle of the night; he says his brain just gets going and won't stop. describes thoughts being of regrets, whys, critical thoughts about himself. He reports low energy, low motivation, lack of enjoyment; he reports a history of eating disorder in response to being bullied by peers and family members for being a big child. He began using laxatives and restricting food in his 20s. He still occasionally does resorts to that but more often he works out 1-2 times a day in order to feel okay about eating. He reports not enjoying eating but does eat protein and fruits and vegetable because he knows his body needs it. He reports few friends, not close to family and a very difficult break up with S.O in December 2023. Pt denies SI or HI; no A/V Hallucination; no hx of edita Pt has tried celexa and prozac both of which caused weight gain up to 40# He does not want to take anything that could cause weight gain as he feels it could trigger eating disorder. Past Psychiatric History: no IPLOC, No IOP or PHP. [facility] Subject[facility] Subjective Subjective Medication Compliance: Yes Side effects from medications: No Review of Systems Medical Review of Systems: unchanged Mental Status Exam Mental Status Exam Patient Appearance: Well Grooomed and Appropriate Patient Orientation: Person, Place, Time and Situation Level of Consciousness: Awake, Appropriate and Alert Patient Behavior: Appropriate and Cooperative Mood Description: Anxious Affect Description: Anxious Patient Cognition Impaired: No Ability to Follow Directions: Good Speech Pattern: Clear Memory Description: Intact Hallucinations: None Delusions: Not Present Thought Process: Intact Thought Content: positive for Intact Judgement: Good Assessment and Plan Assessment & Plan (1) LEODAN (generalized anxiety disorder): Status: Acute Code(s): F41.1 - Generalized anxiety disorder (2) Major depressive disorder, recurrent, moderate: Status: Acute Code(s): F33.1 - Major depressive disorder, recurrent, moderate Plan continue wellbutrin start buspar 5mg BID follow up in 6 weeks Medications: New buspirone 5 mg PO BID 60 tabs 1RF Counseling and coordination of Care Pt. Self Management counseling: Maintenance-social rhythm, Mod caffeine/ETOH intake, Sleep hygiene and Problem solving Medication management counseling: Effectiveness, Side effects, Dosing range, Duration, Drug interaction and Adherence Diagnosis and Prognosis Counseling: Accuracy of diagnosis, Prognosis over time, Impact of diagnosis on life functions, Impact of family relationship, Problemati c behaviors secondary to diagnosis and Adequacy of current interventions Details: I spent 35 minutes reviewing the record, seeing the patient and documenting in the medical record. Counseling provided to the patient/caregiver as outlined below. Addressed patient/caregiver concerns regarding current medication regime including effective adherence. Addressed patient/caregiver concerns regarding diagnosis and prognosis including accuracy of diagnosis, prognosis over time, impact of diagnosis. Addressed patient/caregiver concerns regarding impact of recent str essors. [facility] Medical History (Updated 01/21/25 @ 12:38 by Mindy Vogt APRN) Medication management On pre-exposure prophylaxis for HIV Herpes Anxiety Depression Surgical History No pertinent past surgical history Family History Father COPD (chronic obstructive pulmonary disease) Myocardial infarction Mother Substance use disorder Sister Breast CA Brother Depression Other Mental health disorder Social History Housing: Apartment Alcohol intake: current Alcohol intake frequency: holidays/special occasions only Patient Tobacco Use Status: Never used Tobacco Tobacco use type: Cigarette e-Cigarette/Vaping Use: Never Used Second Hand Smoke Exposure: No service: No Current occupational status: employed Cognitive needs: No Hearing needs: No Vision needs: Yes (perscription glasses) Social History: lives alone; has dog and 2 cats; works in [employer] Substance History: none Trauma History: bullied Coding Level of Care Code Est Pt Level 4 (00816) Diagnoses LEODAN (generalized anxiety disorder) F41.1 Major depressive disorder, recurrent, moderate F33.1
== END 2025-02-19 10:42 | disposition home or self-care (01) ==
LOC: HO.HOP 09:34
PROVIDERS: PCP Internal Medicine; Visit Provider Clinical Nurse Specialist Psychiatric/Mental Health
DX: F41.1 Generalized anxiety disorder (principal); F33.1 Major depressive disorder, recurrent, moderate
CPT/HCPCS: 99214

== ENCOUNTER → 2025-02-19 09:34 | Outpatient (BNVA) | payer OTHER, SELFPAY | PROVIDERS: PCP Internal Medicine; Visit Provider Clinical Nurse Specialist Psychiatric/Mental Health | DX: F41.1 Generalized anxiety disorder (principal); F33.1 Major depressive disorder, recurrent, moderate | CPT/HCPCS: 99212 ==

== ENCOUNTER 2025-04-01 09:08 | Outpatient (AMB) | payer OTHER, SELFPAY ==
--- NOTE | 2025-04-01 09:11 | A.OFFPSYCH_ITS ---
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 Allergies No Known Allergies Allergy (Verified 11/22/24 09:48) Medication List - Last Reconciled 04/01/25 by Mindy Vogt APRN azithromycin take 500 mg today (day 1), then 250 mg for 4 days (days 2-5) PO bupropion HCl XL (Wellbutrin XL) 150 mg PO QAM bupropion HCl XL (Wellbutrin XL) 300 mg PO QAM buspirone 5 mg PO BID cholecalciferol (vitamin D3) 50 mcg PO DAILY ciprofloxacin HCl 500 mg PO ONCE doxycycline hyclate 200 mg (2 x 100 mg) PO ONCE emtricitabine-tenofovir (TDF) 200-300 mg 1 tab PO DAILY trazodone 50 mg orally Take 1/2 to 1 tablet at bedtime PRN insomnia valacyclovir 500 mg PO DAILY HPI- Psychiatric Chief Complaint: depression HPI Narrative: Scooter is here for follow up re: depression and anxiety. Pt reports no change with buspar; no negative side effects; pt is wondering if ADHD symptoms are causing his anxiety and feeling overwhelmed; he isolates because being around othe people often overwhelms him; he feels bad because he can not complete projects/tasks easily. He reports as a child he struggled in school and never dd well due to attention and distractibility problems; teachers often commented that he needed to pay attention; he had an IEP in school but does not recall why; he says he and his twin brother got in trouble at school for attention issues and the school wanted them screened fro ADHD but his mother refused. He did finish high school but he syas just barely. Pt completed the adult ADHD scale and scored positive for 5 out the 6 core adhd symptoms and 10 out of 18 additional symptoms related to ADHD. pt denies cardiac issues; denies histroy of seizures; denies active eating disordered behavior; his weight has remained stable; He denies Tobacco use, he deies THC use. he uses ETOH 3-4 times a year on special occasions; He uses no illicit drugs. Past Psychiatric History: Referred by PCP for evaluation of depression and anxiety; At intake, Pt PHQ9 = 21 and LEODAN 7 = 18. pt reported significant depression for years but worse over last 2-3 years. Pt feels sad every day; cries every day; bursts into tears even when working out at the gym. He is always anxious; He wakes in the middle of the night; he says his brain just gets going and won't stop. describes thoughts being of regrets, whys, critical thoughts about himself. He reports low energy, low motivation, lack of enjoyment; he reports a history of eating disorder in response to being bullied by peers and family members for being a big child. He began using laxatives and restricting food in his 20s. He still occasionally does resorts to that but more often he works out 1-2 times a day in order to feel okay about eating. He reports not enjoying eating but does eat protein and fruits and vegetable because he knows his body needs it. He reports few friends, not close to family and a very difficult break up with S.O in December 2023. Pt denies SI or HI; no A/V Hallucination; no hx of edita Pt has tried celexa and prozac both of which caused weight gain up to 40# He does not want to take anything that could cause weight gain as he feels it could trigger eating disorder. Past Psychiatric History: no IPLOC, No IOP or PHP. He has outpatient therpaist in [facility] Subjective Subjective Subjective Medication Compliance: Yes Side effects from medications: No Review of Systems Medical Review of Systems: unchanged Mental Status Exam Mental Status Exam Patient Appearance: Well Grooomed and Appropriate Patient Orientation: Person, Place, Time and Situation Level of Consciousness: Awake and Alert Patient Behavior: Appropriate, Anxious and Distractible Mood Description: Anxious Affect Description: Depressed and Anxious Patient Cognition Impaired: No Ability to Follow Directions: Good Speech Pattern: Clear and Appropriate Memory Description: Intact Hallucinations: None Delusions: Not Present Thought Process: Intact and Goal Oriented Thought Content: positive for Intact and positive for Goal Oriented Judgement: Good Results Reviewed Results Reviewed: completed ADHD self report scale [id number] Assessment and Plan Assessment & Plan (1) Major depressive disorder, recurrent, moderate: Status: Acute Code(s): F33.1 - Major depressive disorder, recurrent, moderate (2) LEODAN (generalized anxiety disorder): Status: Acute Code(s): F41.1 - Generalized anxiety disorder (3) Anorexia mentalis: Status: Acute Code(s): F50.00 - Anorexia nervosa, unspecified (4) ADHD (attention deficit hyperactivity disorder), combined type: Status: Acute Code(s): F90.2 - Attention-deficit hyperactivity disorder, combined type Plan discussed options for treatment; stimulant and non stimulant medications' pt agrees to rial of adderall 10 mg bid discussed possible side effects including increase anxiety, moodiness, loss of appetite, heat and sun sensitivity. we discussed ways to manage all of the above possible SE retun in 4 weeks Medications: New dextroamphetamine-amphetamine 10 mg (Adderall) administer doses at least 4-6 hours apart; Partial Fill upon patient request. 10 mg PO BID 60 tabs 0RF F90.2 - Attention-deficit hyperactivity disorder, combined type Refilled bupropion HCl XL (Wellbutrin XL) 300 mg PO QAM 90 tabs 1RF trazodone 50 mg orally Take 1/2 to 1 tablet at bedtime PRN insomnia 30 tabs 2RF sleep bupropion HCl XL (Wellbutrin XL) 150 mg PO QAM 90 tabs 1RF buspirone 5 mg PO BID 60 tabs 1RF Counseling and coordination of Care Pt. Self Management counseling: Mod caffeine/ETOH intake, Nutrition education and improvement and Sleep hygiene Medication management counseling: Effectiveness, Side effects, Dosing range, Duration, Drug interaction and Adherence Diagnosis and Prognosis Counseling: Accuracy of diagnosis, Prognosis over time, Impact of diagnosis on life functions, Impact of family relationship, Problematic behaviors secondary to diagnosis and Adequacy of current interventions Details-Diagnosis/Prognosis counseling: written instructions on how to take medications and manage possible side effects Details: I spent 45 minutes reviewing the record, seeing the patient and documenting in the medical record. Counseling provided to the patient/caregiver as outlined below. Addressed patient/caregiver concerns regarding current medication regime including effective adherence. Addressed patient/caregiver concerns regarding diagnosis and prognosis including accuracy of diagnosis, prognosis over time, impact of diagnosis. Addressed patient/caregiver concerns regarding impact of recent stressors. [facility] Medical History (Updated 04/01/25 @ 09:48 by Mindy Vogt APRN) Medication management On pre-exposure prophylaxis for HIV Herpes Anxiety Depression Surgical History No pertinent past surgical history Family History Father COPD (chronic obstructive pulmonary disease) Myocardial infarction Mother Substance use disorder Sister Breast CA Brother Depression Other Mental health disorder Social History Housing: Apartment Alcohol intake: current Alcohol intake frequency: holidays/special occasions only Patient Tobacco Use Status: Never used Tobacco Tobacco use type: Cigarette e-Cigarette/Vaping Use: Never Used Second Hand Smoke Exposure: No service: No Current occupational status: employed Cognitive needs: No Hearing needs: No Vision needs: Yes (perscription glasses) Social History: lives alone; has dog and 2 cats; works in [employer] Substance History: none Trauma History: bullied Coding Level of Care Code Est Pt Level 5 (68942) Diagnoses Major depressive disorder, recurrent, moderate F33.1 LEODAN (generalized anxiety disorder) F41.1 Anorexia mentalis F50.00 ADHD (attention deficit hyperactivity disorder), combined type F90.2
== END 2025-04-01 09:49 | disposition home or self-care (01) ==
LOC: HO.HOP 09:08
PROVIDERS: PCP Internal Medicine; Visit Provider Clinical Nurse Specialist Psychiatric/Mental Health
DX: F33.1 Major depressive disorder, recurrent, moderate (principal); F50.00 Anorexia nervosa, unspecified; F41.1 Generalized anxiety disorder; F90.2 Attention-deficit hyperactivity disorder, combined type
CPT/HCPCS: 99215

== ENCOUNTER → 2025-04-01 09:08 | Outpatient (BNVA) | payer OTHER, SELFPAY | PROVIDERS: PCP Internal Medicine; Visit Provider Clinical Nurse Specialist Psychiatric/Mental Health | DX: F33.1 Major depressive disorder, recurrent, moderate (principal); F41.1 Generalized anxiety disorder; F90.2 Attention-deficit hyperactivity disorder, combined type; F50.00 Anorexia nervosa, unspecified | CPT/HCPCS: 99212 ==

== ENCOUNTER 2025-04-29 09:28 | Outpatient (AMB) | payer OTHER, SELFPAY ==
--- NOTE | 2025-04-29 09:18 | MHC.OFFVISPS ---
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 Allergies No Known Allergies Allergy (Verified 11/22/24 09:48) Medication List - Last Reconciled 04/29/25 by Mindy Vogt APRN bupropion HCl XL (Wellbutrin XL) 300 mg PO QAM bupropion HCl XL (Wellbutrin XL) 150 mg PO QAM buspirone 5 mg PO BID cholecalciferol (vitamin D3) 50 mcg PO DAILY dextroamphetamine-amphetamine 10 mg (Adderall) 10 mg PO BID doxycycline hyclate 200 mg (2 x 100 mg) PO ONCE emtricitabine-tenofovir (TDF) 200-300 mg 1 tab PO DAILY trazodone 50 mg orally Take 1/2 to 1 tablet at bedtime PRN insomnia valacyclovir 500 mg PO DAILY HPI- Psychiatric Chief Complaint: f/u consultation HPI Narrative: Scooter is here for follow up re: ADHD, depression and anxiety. Pt reports no change with buspar; no negative side effects; GAD7 remains high (12 upon admission and now 11) Pt reports no side effects from adderall IR. He ususally forgets to take the second dose. He denies increased sleep problems or loss of appetite. He would like to try the extended release adderall. He denies SI or HI. His PHQ9=11. He reports his mood and anxiety symptoms are manageable. pt denies cardiac issues; denies histroy of seizures; denies active eating disordered behavior; his weight has remained stable; He denies Tobacco use, he deies THC use. he uses ETOH 3-4 times a year on special occasions; He uses no illicit drugs. Past Psychiatric History: Referred by PCP for evaluation of depression and anxiety; At intake, Pt PHQ9 = 21 and LEODAN 7 = 18. pt reported significant depression for years but worse over last 2-3 years. Pt feels sad every day; cries every day; bursts into tears even when working out at the gym. He is always anxious; He wakes in the middle of the night; he says his brain just gets going and won't stop. describes thoughts being of regrets, whys, critical thoughts about himself. He reports low energy, low motivation, lack of enjoyment; he reports a history of eating disorder in response to being bullied by peers and family members for being a big child. He began using laxatives and restricting food in his 20s. He still occasionally does resorts to that but more often he works out 1-2 times a day in order to feel okay about eating. He reports not enjoying eating but does eat protein and fruits and vegetable because he knows his body needs it. He reports few friends, not close to family and a very difficult break up with S.O in December 2023. Pt denies SI or HI; no A/V Hallucination; no hx of edita Pt has tried celexa and prozac both of which caused weight gain up to 40# He does not want to take anything that could cause weight gain as he feels it could trigger eating disorder. Past Psychiatric History: no IPLOC, No IOP or PHP. He has outpatient therpaist in [facility] Subjective Subjective Subjective Medication Compliance: Yes Side effects from medications: No Review of Systems Medical Review of Systems: unchanged Mental Status Exam Mental Status Exam Patient Appearance: Well Grooomed and Appropriate Patient Orientation: Person, Place, Time and Situation Level of Consciousness: Awake and Alert Patient Behavior: Appropriate, Anxious and Distractible Mood Description: Cheerful and Anxious Affect Description: Cheerful and Anxious Patient Cognition Impaired: No Ability to Follow Directions: Good Speech Pattern: Clear and Appropriate Memory Description: Intact Hallucinations: None Delusions: Not Present Thought Process: Intact and Goal Oriented Thought Content: positive for Intact and positive for Goal Oriented Judgement: Good Assessment and Plan Assessment & Plan (1) Major depressive disorder, recurrent, moderate: Status: Acute Code(s): F33.1 - Major depressive disorder, recurrent, moderate (2) LEODAN (generalized anxiety disorder): Status: Acute Code(s): F41.1 - Generalized anxiety disorder (3) ADHD (attention deficit hyperactivity disorder), combined type: Status: Acute Code(s): F90.2 - Attention-deficit hyperactivity disorder, combined type (4) Anorexia mentalis: Status: Acute Code(s): F50.00 - Anorexia nervosa, unspecified (5) Anorexia mentalis: Status: Acute Code(s): F50.00 - Anorexia nervosa, unspecified Plan start adderall XR 25mg every morning increase buspar to 10mg BID continue wellbutrin and trazodone return in 8 weeks Medications: New buspirone 10 mg PO BID 60 tabs 3RF dextroamphetamine-amphetamine 25 mg ER (Adderall XR) Partial Fill upon patient request. 25 mg PO QAM 60 caps 0RF F90.2 - Attention-deficit hyperactivity disorder, combined type Refilled cholecalciferol (vitamin D3) 50 mcg PO DAILY 90 caps 0RF Discontinued buspirone Discontinued Reason: Doctor's Order 5 mg PO BID 60 tabs 1RF Counseling and coordination of Care Pt. Self Management counseling: Mod caffeine/ETOH intake, Nutrition education and improvement and Sleep hygiene Medication management counseling: Effectiveness, Side effects, Dosing range, Duration, Drug interaction and Adherence Diagnosis and Prognosis Counseling: Accuracy of diagnosis, Prognosis over time, Impact of diagnosis on life functions, Impact of family relationship, Problematic behaviors secondary to diagnosis and Adequacy of current interventions Details-Diagnosis/Prognosis counseling: written instructions on how to take medications and manage possible side effects Details: I spent [] minutes reviewing the record, seeing the patient and documenting in the medical record. Counseling provided to the patient/caregiver as outlined below. Addressed patient/caregiver concerns regarding current medication regime including effective adherence. Addressed patient/caregiver concerns regarding diagnosis and prognosis including accuracy of diagnosis, prognosis over time, impact of diagnosis. Addressed patient/caregiver concerns regarding impact of recent stressors. [facility] Medical History (Updated 04/01/25 @ 09:48 by Mindy Vogt APRN) Medication management On pre-exposure prophylaxis for HIV Herpes Anxiety Depression Surgical History No pertinent past surgical history Family History Father COPD (chronic obstructive pulmonary disease) Myocardial infarction Mother Substance use disorder Sister Breast CA Brother Depression Other Mental health disorder Social History Housing: Apartment Alcohol intake: current Alcohol intake frequency: holidays/special occasions only Patient Tobacco Use Status: Never used Tobacco Tobacco use type: Cigarette e-Cigarette/Vaping Use: Never Used Second Hand Smoke Exposure: No service: No Current occupational status: employed Cognitive needs: No Hearing needs: No Vision needs: Yes (perscription glasses) Social History: lives alone; has dog and 2 cats; works in [employer] Substance History: none Trauma History: bullied Coding Level of Care Code Est Pt Level 4 (24449) Diagnoses Major depressive disorder, recurrent, moderate F33.1 LEODAN (generalized anxiety disorder) F41.1 ADHD (attention deficit hyperactivity disorder), combined type F90.2 Anorexia mentalis F50.00
== END 2025-04-29 09:30 | disposition home or self-care (01) ==
LOC: HO.HOP 09:28
PROVIDERS: PCP Internal Medicine; Visit Provider Clinical Nurse Specialist Psychiatric/Mental Health
DX: F33.1 Major depressive disorder, recurrent, moderate (principal); F41.1 Generalized anxiety disorder; F90.2 Attention-deficit hyperactivity disorder, combined type; F50.00 Anorexia nervosa, unspecified
CPT/HCPCS: 99214

== ENCOUNTER → 2025-04-29 09:28 | Outpatient (BNVA) | payer OTHER, SELFPAY | PROVIDERS: PCP Internal Medicine; Visit Provider Clinical Nurse Specialist Psychiatric/Mental Health | DX: F90.2 Attention-deficit hyperactivity disorder, combined type (principal) | CPT/HCPCS: 99212 ==

== ENCOUNTER 2025-05-02 08:30 | Outpatient (AMB) | payer OTHER, SELFPAY ==
--- NOTE | 2025-05-02 08:46 | A.OFFPC_ITS ---
Vital Signs 05/02/25 08:47 Height 5 ft 11 in Weight 168 lb 6 oz BMI 23.5 BP 110/70 Blood Pressure Location Lt brachial Position Sitting Pulse 60 Pulse Source Pulse Oximeter Temp 97.3 F Temp Source Temporal Artery Scan Pulse Oximetry (%) 97 Oxygen Delivery Method Room Air Intake Visit Reasons: Annual Exam Intake Note: Patient is here today for a physical. 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 Accompanied by: Self / Same As Patient Allergies No Known Allergies Allergy (Verified 05/02/25 09:25) Medication List - Last Reconciled 05/02/25 by Herbert Bellamy MD bupropion HCl XL (Wellbutrin XL) 300 mg PO QAM bupropion HCl XL (Wellbutrin XL) 150 mg PO QAM buspirone 10 mg PO BID cholecalciferol (vitamin D3) 50 mcg PO DAILY dextroamphetamine-amphetamine 10 mg (Adderall) 10 mg PO BID dextroamphetamine-amphetamine 25 mg ER (Adderall XR) 25 mg PO QAM doxycycline hyclate 200 mg (2 x 100 mg) PO ONCE emtricitabine-tenofovir (TDF) 200-300 mg 1 tab PO DAILY trazodone 50 mg orally Take 1/2 to 1 tablet at bedtime PRN insomnia valacyclovir 500 mg PO DAILY Tobacco use date assessed: 05/02/25 Dental Screening Dental Screen Date: 11/22/24 HPI Annual Exam HPI Details 39-year-old male requesting an annual ph ysical. [facility] Medical History Medication management On pre-exposure prophylaxis for HIV Herpes Anxiety Depression Surgical History No pertinent past surgical history Family History Father COPD (chronic obstructive pulmonary disease) Myocardial infarction Mother Substance use disorder Sister Breast CA Brother Depression Other Mental health disorder Social History Housing: Apartment Alcohol intake: current Alcohol intake frequency: does not drink Patient Tobacco Use Status: Never used Tobacco Tobacco use type: Cigarette e-Cigarette/Vaping Use: Never Used Second Hand Smoke Exposure: No service: No Current occupational status: employed Cognitive needs: No Hearing needs: No Vision needs: Yes (perscription glasses) Questionnaire Thrive Questionnaire Date Thrive assessed: 04/25/25 I am a: Patient What is your living situation today?: I have a steady place to live Within the past 12 months, did the food you bought not last and you didn't have the money to get more?: I choose not to answer this question Within the past 12 months, did you worry whether your food would run out before you got money to buy more?: I choose not to answer this question Do you have trouble paying for medicines?: No Do you have trouble getting transportation to medical appointments?: No Do you have trouble paying your heating and electricity bill?: Yes Do you have trouble taking care of your child, family member or friend?: No Do you have trouble with day-to-day activities such as bathing, preparing meals, shopping, managing finances, etc.?: No Are you currently unemployed and looking for a job?: No Are you interested in more education?: No Please select the resources that you would like help with: None Currently or been in a relationship where the following occur: No concerns reported THRIVE Score: 1 AUDIT C Alcohol Use Questionnaire (AUDIT-C) 1. How often do you have a drink containing alcohol?: Monthly or less 2. How many drinks containing alcohol do you have on a typical day when you are drinking?: 1 or 2 3. How often do you have six or more drinks on one occasion?: Never Total Score: 1 LEODAN-7 AMB Questionnaire LEODAN-7 Date LEODAN - 7 assessed: 05/02/25 Feeling nervous, anxious, or on edge: 2 = More than half the days Not being able to stop or control worryin = More than half the days Worrying too much about different things: 2 = More than half the days Trouble relaxin = More than half the days Being so restless that it is hard to sit still: 1 = Several days Becoming easily annoyed or irritable: 3 = Nearly every day Feeling afraid as if something awful might happen: 0 = Not at all Total LEODAN-7 score (0-4 normal; 5-9 mild; 10-14 moderate; 15-21 severe): 12 Source: Developed by Drs. Troy Meneses, Ilene Bejarano, Hua Patton and colleagues, with an educational whitley from [employer]. Physical exam (Primary Care) Vital Signs: Last Vital Signs Temp 97.3 F 05/02/25 08:47 Pulse 60 05/02/25 08:47 BP 110/70 05/02/25 08:47 Pulse Ox 97 05/02/25 08:47 Oxygen Delivery Method Room Air 05/02/25 08:47 Care Plan Goal for BP management: Blood pressure is in range. BMI result Body Mass Index 23.5 Tobacco/Smoking Status: Tobacco use Status Tobacco use date assessed 05/02/25 05/02/25 08:52 Patient Tobacco Use Status Never used Tobacco 05/02/25 08:52 Tobacco use type Cigarette 05/02/25 08:52 e-Cigarette/Vaping Use Never Used 05/02/25 08:52 Thrive Assessment: Date of Thrive Assessment Date Thrive assessed 04/25/25 05/02/25 08:52 Currently or been in a relationship where the following occur: No concerns reported Const General: cooperative and healthy appearing Nutritional Appearance: well nourished Orientation/consciousness: patient oriented x3 Limitations: no limitations HENMT Head: Yes normal to inspection Eyes General: appearance normal, both eyes and all related structures Neck Neck: Yes normal visual inspection Chest Chest palpation & inspection: normal palpation of entire chest wall Resp Effort & Inspection: normal respiratory effort Neuro General: patient oriented x3 Coding Level of Care Code Complex EM visit Add On [id number] Diagnoses Major depressive disorder, recurrent, moderate F33.1 Annual physical exam Z00.00 Assessment & Plan Assessment & Plan (1) Major depressive disorder, recurrent, moderate: Code(s): F33.1 - Major depressive disorder, recurrent, moderate Category: Medical Plan: Sees psychiatrist who is adjusting all his meds. (2) Annual physical exam: Code(s): Z00.00 - Encounter for general adult medical examination without abnormal findings Plan: Fasting lipid panel ordered.
[2025-05-02 08:47] VITALS: BP 110/70; PULSE 60; TEMP 36.3; O2SAT 97; BMI 23.5
== END 2025-05-02 10:22 | disposition home or self-care (01) ==
LOC: HO.HMCH 08:31
PROVIDERS: PCP Internal Medicine; Visit Provider Internal Medicine
DX: Z00.00 Encounter for general adult medical examination without abnormal findings (principal); F33.1 Major depressive disorder, recurrent, moderate

== ENCOUNTER → 2025-05-02 08:30 | Outpatient (BNVA) | payer OTHER, SELFPAY | PROVIDERS: PCP Internal Medicine; Visit Provider Internal Medicine | DX: Z00.00 Encounter for general adult medical examination without abnormal findings (principal); F33.1 Major depressive disorder, recurrent, moderate; Z13.39 Encounter for screening examination for other mental health and behavioral disorders | CPT/HCPCS: 99395 ==

== ENCOUNTER 2025-06-24 09:40 | Outpatient (AMB) | payer OTHER, SELFPAY ==
--- NOTE | 2025-06-24 09:39 | MHC.OFFVISPS ---
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 Allergies lamotrigine (From Lamictal) Adverse Reaction (Verified 06/24/25 09:41) acne Medication List - Last Reconciled 06/24/25 by Mindy Vogt APRN bupropion HCl XL (Wellbutrin XL) 300 mg PO QAM bupropion HCl XL (Wellbutrin XL) 150 mg PO QAM buspirone 10 mg PO BID cholecalciferol (vitamin D3) 50 mcg PO DAILY dextroamphetamine-amphetamine 10 mg (Adderall) 10 mg PO BID dextroamphetamine-amphetamine 25 mg ER (Adderall XR) 25 mg PO QAM doxycycline hyclate 200 mg (2 x 100 mg) PO ONCE emtricitabine-tenofovir (TDF) 200-300 mg 1 tab PO DAILY trazodone 50 mg orally Take 1/2 to 1 tablet at bedtime PRN insomnia valacyclovir 500 mg PO DAILY HPI- Psychiatric Chief Complaint: f/u consultation HPI Narrative: Scooter is here for follow up re: ADHD, depression and anxiety. Pt reports little change with medications. He does feel the adderall is helping but wears off before the end of his work day. He denies side effects; denies changes in appetite. GAD7 = 10 down from last appt. He denies SI or HI. His PHQ9=9 also down from last appt. He reports his mood and anxiety symptoms are manageable. pt denies cardiac issues; denies history of seizures; denies active eating disordered behavior; his weight has remained stable; He denies Tobacco use, he deies THC use. he uses ETOH 3-4 times a year on special occasions; He uses no illicit drugs. Past Psychiatric History: Referred by PCP for evaluation of depression and anxiety; At intake, Pt PHQ9 = 21 and LEODAN 7 = 18. pt reported significant depression for years but worse over last 2-3 years. Pt feels sad every day; cries every day; bursts into tears even when working out at the gym. He is always anxious; He wakes in the middle of the night; he says his brain just gets going and won't stop. describes thoughts being of regrets, whys, critical thoughts about himself. He reports low energy, low motivation, lack of enjoyment; he reports a history of eating disorder in response to being bullied by peers and family members for being a big child. He began using laxatives and restricting food in his 20s. He still occasionally does resorts to that but more often he works out 1-2 times a day in order to feel okay about eating. He reports not enjoying eating but does eat protein and fruits and vegetable because he knows his body needs it. He reports few friends, not close to family and a very difficult break up with S.O in December 2023. Pt denies SI or HI; no A/V Hallucination; no hx of edita Pt has tried celexa and prozac both of which caused weight gain up to 40# He does not want to take anything that could cause weight gain as he feels it could trigger eating disorder. Past Psychiatric History: no IPLOC, No IOP or PHP. He [facility] Subjective Subjective Subjective Medication Compliance: Yes Side effects from medications: No Review of Systems Medical Review of Systems: unchanged Mental Status Exam Mental Status Exam Patient Appearance: Well Grooomed and Appropriate Patient Orientation: Person, Place, Time and Situation Level of Consciousness: Awake and Alert Patient Behavior: Appropriate, Anxious and Distractible Mood Description: Cheerful and Anxious Affect Description: Cheerful and Anxious Patient Cognition Impaired: No Ability to Follow Directions: Good Speech Pattern: Clear and Appropriate Memory Description: Intact Hallucinations: None Delusions: Not Present Thought Process: Intact and Goal Oriented Thought Content: positive for Intact and positive for Goal Oriented Judgement: Good Assessment and Plan Assessment & Plan (1) Major depressive disorder, recurrent, moderate: Status: Acute Code(s): F33.1 - Major depressive disorder, recurrent, moderate (2) LEODAN (generalized anxiety disorder): Status: Acute Code(s): F41.1 - Generalized anxiety disorder (3) ADHD (attention deficit hyperactivity disorder), combined type: Status: Acute Code(s): F90.2 - Attention-deficit hyperactivity disorder, combined type Plan Increase adderall XR to 30mg every morning Continue buspar to 10mg BID continue wellbutrin and trazodone return in 8 weeks If pt stable will refer to PCP to follow up Medications: New dextroamphetamine-amphetamine 30 mg ER (Adderall XR) Partial Fill upon patient request. 30 mg PO DAILY 30 caps 0RF F90.2 - Attention-deficit hyperactivity disorder, combined type Refilled bupropion HCl XL (Wellbutrin XL) 150 mg PO QAM 90 tabs 1RF bupropion HCl XL (Wellbutrin XL) 300 mg PO QAM 90 tabs 1RF buspirone 10 mg PO BID 60 tabs 3RF cholecalciferol (vitamin D3) 50 mcg PO DAILY 90 caps 0RF trazodone 50 mg orally Take 1/2 to 1 tablet at bedtime PRN insomnia 30 tabs 2RF sleep Discontinued dextroamphetamine-amphetamine 25 mg ER (Adderall XR) Partial Fill upon patient request. Discontinued Reason: Doctor's Order 25 mg PO QAM 60 caps 0RF F90.2 - Attention-deficit hyperactivity disorder, combined type Counseling and coordination of Care Pt. Self Management counseling: Mod caffeine/ETOH intake, Nutrition education and improvement and Sleep hygiene Details-Self Mgmt counseling: educated re: adderall and temp regulation inefficiency and more easily sunburned so need for care in hot joaquin weather; ice water, shade, air conditioing, more fequent suncreen application Medication management counseling: Effectiveness, Side effects, Dosing range, Duration, Drug interaction and Adherence Diagnosis and Prognosis Counseling: Accuracy of diagnosis, Prognosis over time, Impact of diagnosis on life functions, Impact of family relationship, Problematic behaviors secondary to diagnosis and Adequacy of current interventions Details-Diagnosis/Prognosis counseling: written instructions on how to take medications and manage possible side effects Details: I spent 35 minutes reviewing the record, seeing the patient and documenting in the medical record. Counseling provided to the patient/caregiver as outlined below. Addressed patient/caregiver concerns regarding current medication regime including effective adherence. Addressed patient/caregiver concerns regarding diagnosis and prognosis including accuracy of diagnosis, prognosis over time, impact of diagnosis. Addressed patient/caregiver concerns regarding impact of recent stressors. [facility] Medical History Medication management On pre-exposure prophylaxis for HIV Herpes Anxiety Depression Surgical History No pertinent past surgical history Family History Father COPD (chronic obstructive pulmonary disease) Myocardial infarction Mother Substance use disorder Sister Breast CA Brother Depression Other Mental health disorder Social History Housing: Apartment Alcohol intake: current Alcohol intake frequency: does not drink Patient Tobacco Use Status: Never used Tobacco Tobacco use type: Cigarette e-Cigarette/Vaping Use: Never Used Second Hand Smoke Exposure: No service: No Current occupational status: employed Cognitive needs: No Hearing needs: No Vision needs: Yes (perscription glasses) Social History: lives alone; has dog and 2 cats; works in [employer] Substance History: none Trauma History: bullied Coding Level of Care Code Est Pt Level 4 (84944) Diagnoses Major depressive disorder, recurrent, moderate F33.1 LEODAN (generalized anxiety disorder) F41.1 ADHD (attention deficit hyperactivity disorder), combined type F90.2
== END 2025-06-24 10:00 | disposition home or self-care (01) ==
LOC: HO.HOP 09:40
PROVIDERS: PCP Internal Medicine; Visit Provider Clinical Nurse Specialist Psychiatric/Mental Health
DX: F33.1 Major depressive disorder, recurrent, moderate (principal); F41.1 Generalized anxiety disorder; F90.2 Attention-deficit hyperactivity disorder, combined type
CPT/HCPCS: 99214

== ENCOUNTER → 2025-06-24 09:40 | Outpatient (BNVA) | payer OTHER, SELFPAY | PROVIDERS: PCP Internal Medicine; Visit Provider Clinical Nurse Specialist Psychiatric/Mental Health | DX: F41.1 Generalized anxiety disorder (principal); F90.2 Attention-deficit hyperactivity disorder, combined type; F33.1 Major depressive disorder, recurrent, moderate | CPT/HCPCS: 99212 ==

== ENCOUNTER 2025-09-19 09:53 | Outpatient (AMB) | payer OTHER, SELFPAY ==
--- NOTE | 2025-09-19 10:07 | MHC.OFFVISPS ---
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: No Allergies lamotrigine (From Lamictal) Adverse Reaction (Verified 06/24/25 09:41) acne Medication List - Last Reconciled 09/19/25 by Mindy Vogt APRN bupropion HCl XL (Wellbutrin XL) 150 mg PO QAM bupropion HCl XL (Wellbutrin XL) 300 mg PO QAM buspirone 10 mg PO BID cholecalciferol (vitamin D3) 50 mcg PO DAILY dextroamphetamine-amphetamine 10 mg (Adderall) 10 mg PO BID dextroamphetamine-amphetamine 30 mg ER (Adderall XR) 30 mg PO DAILY doxycycline hyclate 200 mg (2 x 100 mg) PO ONCE emtricitabine-tenofovir (TDF) 200-300 mg 1 tab PO DAILY trazodone 50 mg orally Take 1/2 to 1 tablet at bedtime PRN insomnia valacyclovir 500 mg PO DAILY HPI- Psychiatric Chief Complaint: f/u consultation HPI Narrative: Scooter is here for follow up re: ADHD, depression and anxiety. Pt symptoms worsened. Scooter tells me his father approximately 2 weeks ago; he was close to his father. he is grieving. His depression is increased, his anxiety is increase, he is not sleeping well. His PHQ9=19 and his GAD7=11. He does feel the adderall is helping his work day. He denies side effects; denies changes in appetite. He denies SI or HI. Pt is more forgetful lately. He has not had labs done since last Spring and no Vitamin B12 or folate on file; will check those and TSH which runs low. pt denies cardiac issues; denies history of seizures; denies active eating disordered behavior; his weight has remained stable; He denies Tobacco use, he deies THC use. he uses ETOH 3-4 times a year on special occasions; He uses no illicit drugs. Past Psychiatric History: Referred by PCP for evaluation of depression and anxiety; At intake, Pt PHQ9 = 21 and LEODAN 7 = 18. pt reported significant depression for years but worse over last 2-3 years. Pt feels sad every day; cries every day; bursts into tears even when working out at the gym. He is always anxious; He wakes in the middle of the night; he says his brain just gets going and won't stop. describes thoughts being of regrets, whys, critical thoughts about himself. He reports low energy, low motivation, lack of enjoyment; he reports a history of eating disorder in response to being bullied by peers and family members for being a big child. He began using laxatives and restricting food in his 20s. He still occasionally does resorts to that but more often he works out 1-2 times a day in order to feel okay about eating. He reports not enjoying eating but does eat protein and fruits and vegetable because he knows his body needs it. He reports few friends, not close to family and a very difficult break up with S.O in December 2023. Pt denies SI or HI; no A/V Hallucination; no hx of edita Pt has tried celexa and prozac both of which caused weight gain up to 40# He does not want to take anything that could cause weight gain as he feels it could trigger eating disorder. Past Psychiatric History: no IPLOC, No IOP or PHP. [facility] Subjective Subjective Medication Compliance: Yes Side effects from medications: No Review of Systems Medical Review of Systems: unchanged Mental Status Exam Mental Status Exam Patient Appearance: Well Grooomed and Appropriate Patient Orientation: Person, Place, Time and Situation Level of Consciousness: Awake and Alert Patient Behavior: Appropriate, Anxious and Distractible Mood Description: Cheerful and Anxious Affect Description: Cheerful and Anxious Patient Cognition Impaired: No Ability to Follow Directions: Good Speech Pattern: Clear and Appropriate Memory Description: Intact Hallucinations: None Delusions: Not Present Thought Process: Intact and Goal Oriented Thought Content: positive for Intact and positive for Goal Oriented Judgement: Good Assessment and Plan Assessment & Plan (1) Major depressive disorder, recurrent, moderate: Status: Acute Code(s): F33.1 - Major depressive disorder, recurrent, moderate (2) LEODAN (generalized anxiety disorder): Status: Acute Code(s): F41.1 - Generalized anxiety disorder (3) ADHD (attention deficit hyperactivity disorder), combined type: Status: Acute Code(s): F90.2 - Attention-deficit hyperactivity disorder, combined type (4) Bereavement: Status: Acute Code(s): Z63.4 - Disappearance and of family member Plan increase buspar to 15mg bid x 1 week and if tolerated can increase to 20mg BID take 75 mg of trazodone at 930pm labs ordered retrun in 4 weeks Medications: Changed From buspirone 10 mg PO BID 60 tabs 3RF To buspirone 20 mg (2 x 10 mg) PO BID 120 tabs 3RF Refilled bupropion HCl XL (Wellbutrin XL) 150 mg PO QAM 90 tabs 1RF dextroamphetamine-amphetamine 10 mg (Adderall) administer doses at least 4-6 hours apart; Partial Fill upon patient request. 10 mg PO BID 60 tabs 0RF F90.2 - Attention-deficit hyperactivity disorder, combined type cholecalciferol (vitamin D3) 50 mcg PO DAILY 90 caps 0RF bupropion HCl XL (Wellbutrin XL) 300 mg PO QAM 90 tabs 1RF trazodone 50 mg orally Take 1/2 to 1 tablet at bedtime PRN insomnia 30 tabs 2RF sleep dextroamphetamine-amphetamine 30 mg ER (Adderall XR) Partial Fill upon patient request. 30 mg PO DAILY 30 caps 0RF F90.2 - Attention-deficit hyperactivity disorder, combined type Orders: Orders Vitamin B12 and Folate Today F33.1 - Major depressive disorder, recurrent, moderate, F90.2 - Attention-deficit hyperactivity disorder, combined type TSH reflex Free T4 Today F33.1 - Major depressive disorder, recurrent, moderate, F90.2 - Attention-deficit hyperactivity disorder, combined type Complete Blood Count Auto Diff Today F33.1 - Major depressive disorder, recurrent, moderate, F41.1 - Generalized anxiety disorder, F90.2 - Attention-deficit hyperactivity disorder, combined type Comprehensive [place]. Panel Fast Today F33.1 - Major depressive disorder, recurrent, moderate, F41.1 - Generalized anxiety disorder, F90.2 - Attention-deficit hyperactivity disorder, combined type Counseling and coordination of Care Details: I spent [] minutes reviewing the record, seeing the patient and documenting in the medical record. Counseling provided to the patient/caregiver as outlined below. Addressed patient/caregiver concerns regarding current medication regime including effective adherence. Addressed patient/caregiver concerns regarding diagnosis and prognosis including accuracy of diagnosis, prognosis over time, impact of diagnosis. Addressed patient/caregiver concerns regarding impact of recent stressors. [facility] Medical History Medication management On pre-exposure prophylaxis for HIV Herpes Anxiety Depression Surgical History No pertinent past surgical history Family History (Reviewed 05/02/25 @ 09: by Herbert Bellamy MD) Father COPD (chronic obstructive pulmonary disease) Myocardial infarction Mother Substance use disorder Sister Breast CA Brother Depression Other Mental health disorder Social History Housing: Apartment Alcohol intake: current Alcohol intake frequency: does not drink Patient Tobacco Use Status: Never used Tobacco Tobacco use type: Cigarette e-Cigarette/Vaping Use: Never Used Second Hand Smoke Exposure: No service: No Current occupational status: employed Cognitive needs: No Hearing needs: No Vision needs: Yes (perscription glasses) Social History: lives alone; has dog and 2 cats; works in [employer] Substance History: none Trauma History: bullied Coding Level of Care Code Est Pt Level 4 (59595) Diagnoses Major depressive disorder, recurrent, moderate F33.1 LEODAN (generalized anxiety disorder) F41.1 ADHD (attention deficit hyperactivity disorder), combined type F90.2 Bereavement Z63.4
== END 2025-09-19 10:20 | disposition home or self-care (01) ==
LOC: HO.HOP 09:53
PROVIDERS: PCP Internal Medicine; Visit Provider Clinical Nurse Specialist Psychiatric/Mental Health
DX: F33.1 Major depressive disorder, recurrent, moderate (principal); F41.1 Generalized anxiety disorder; F90.2 Attention-deficit hyperactivity disorder, combined type; Z63.4 Disappearance and death of family member
CPT/HCPCS: 99214

== ENCOUNTER → 2025-09-19 09:53 | Outpatient (BNVA) | payer OTHER, SELFPAY | PROVIDERS: PCP Internal Medicine; Visit Provider Clinical Nurse Specialist Psychiatric/Mental Health | DX: F33.1 Major depressive disorder, recurrent, moderate (principal); F41.1 Generalized anxiety disorder; F90.2 Attention-deficit hyperactivity disorder, combined type; Z63.4 Disappearance and death of family member; Z79.899 Other long term (current) drug therapy | CPT/HCPCS: 99212 ==